=== PATIENT | female | born 1945 | race Caucasian/White ===

== ENCOUNTER 2016-10-10 20:50 | Emergency (ER) | payer OTHER ==
[~2016-10-10] VITALS: Ht 160 cm; Wt 73.7 kg
[~2016-10-10 20:50] MED LIST: ACET-1138 PO; ADVIN25050 INH; ALBU1NEB10 INH; ALBUAER2 INH; HYDR25TA4 PO; LISI40TA PO; METFTAB2 PO; PRAV40TA2 PO; PRLSR20 PO
[2016-10-10 20:52] VITALS: TEMP 36.5; Ht 160 cm; Wt 73.7 kg
[2016-10-10] MEDS ORDERED: MoRPHine SULFATE 10 MG/ML CARP/VIAL IV STA (21:21)
[2016-10-10] MEDS ORDERED: ONDANSETRON INJ 2 MG/ML 2 ML VIAL IV STA ×2 (21:21→23:19)
[2016-10-10 21:26] LABS: BASO % 0.3 %; BASO ABS # 0.02 K/uL (0-0.2); COMPLETE YES; EOS % 1.4 %; IG% 0.1 %; LYMPH % 30.7 %; LYMPH ABS # 2.44 K/uL (1.2-3.4); MEAN CELL VOLUME 86.7 fL (80-100); MEAN CORPUSCULAR HEMOGLOBIN 30.9 pg (25-34); MEAN CORPUSCULAR HGB CONC 35.7 g/dl (32-36); MEAN PLATELET VOLUME 9.9 fL (7.4-10.4); NEUT % 62.5 %; PLATELET COUNT 263 K/uL (130-400); RED BLOOD COUNT 4.27 M/uL (4.2-5.4); WHITE BLOOD COUNT 7.96 K/uL (4.8-10.8)
[2016-10-10] MEDS ORDERED: OPTIRAY 320 IV PRN (21:30)
[2016-10-10 21:31] LABS: URINE APPEARANCE CLOUDY (CLEAR); URINE BILIRUBIN NEG (NEG); URINE COLOR YELLOW; URINE EPITHELIAL CELL AUTO >30 /lpf (0-5); URINE NITRITE NEG (NEG); URINE SPECIFIC GRAVITY 1.032 (1.000-1.030); UROBILINOGEN NEG (NEG); ZZUR CULT IF INDIC CLEAN CATCH YES
[2016-10-10 21:32] LABS: MANUAL MICROSCOPIC REQUIRED? NO; REVIEW REQ? NO
[2016-10-10 21:40] LABS: ALT/SGPT 23 U/L (12-78); BLOOD UREA NITROGEN 16 mg/dl (7-18); BUN/CREATININE RATIO 21.8 (10-20); CALCIUM 9.3 mg/dl (8.5-10.1); CARBON DIOXIDE 23 mmol/L (21-32); CHLORIDE 97 mmol/L (98-107); CREATININE 0.73 mg/dl (0.60-1.20); GLUCOSE 137 mg/dl (70-99); POTASSIUM 4.1 mmol/L (3.5-5.1); SODIUM 134 mmol/L (136-145)
[2016-10-10] MEDS ORDERED: PRLSR20 PO (21:41)
[2016-10-10] MEDS ORDERED: LISI-787 PO (21:41)
[2016-10-10 21:43] LABS: ALKALINE PHOSPHATASE 74 U/L (45-117); AST/SGOT 15 U/L (15-37)
[2016-10-10] MEDS ORDERED: ACET-1257 PO (21:43)
[2016-10-10] MEDS ORDERED: CEPH500C PO (23:40)
[2016-10-10] MEDS ORDERED: CEPHALEXIN MONOHYDRATE 250 MG CAP PO ONE (23:45)
[2016-10-10] MEDS ORDERED: OXYCODONE IR HOME PACK PO ONE (23:45)
[2016-10-11] MEDS ORDERED: ONDANSETRON HOME PACK 4MG OD TAB ONE (00:06)
[2016-10-11 00:11] VITALS: BP 148/86; PULSE 84; O2SAT 96
[2016-10-11] MEDS ORDERED: ONDANSETRON HOME PACK 4MG OD TAB PO ONE (00:15)
--- NOTE | 2016-10-11 01:16 | EMERGENCY ROOM VISIT NOTE ---
History Report prepared by Reinaldo: Suzette Putnam Under the Supervision of: Dr. Philip Masters D.O. First contact with patient: 21:08 Chief Complaint: FLANK PAIN Stated Complaint: PAIN IN SIDE AND BACK History of Present Illness The patient is a 70 year old female who presents to the Emergency Room with complaints of worsening left sided flank pain with onset 4 days ago. She rates her pain as a 10/10. Three days ago, the patient had a bowel movement that improved her discomfort. Two days ago, she noticed that the pain wrapped around her lower back. She has had some burning with urination and urinary frequency on Sunday but since then has had numbness. The patient notes that lying down makes the pain worse especially when she lays on that side. She denies weakness or numbness in her legs or groin, chest pain, shortness of breath, blood in her urine. She denies a history of aorta problems. No fevers greater than 100.4. Patient denies any abdominal pain. Source of History: patient Onset: 4 days ago Position: other (left flank ) Symptom Intensity: 10/10 Quality: other (flank pain) Timing: worsening Associated Symptoms: + back pain, No SOB, No chest pain, No numbness, No weakness Note: She has had some burning with urination and urinary frequency. She denies blood in her urine, numbness or weakness in her groin. Review of Systems See HPI for pertinent positives & negatives. A total of 10 systems reviewed and were otherwise negative. Past Medical & Surgical Medical Problems: (1) ASTHMA, UNSPECIFIED (2) DIAB STEVE WO COMPL, TYPE II OR UNSPEC TYPE, UNCONTROLLED (3) HYPERTENSION NOS (4) KNEE JOINT REPLACEMENT STATUS (5) MIXED HYPERLIPIDEMIA Family History Diabetes mellitus FH: cancer Social History Smoking Status: Never Smoker Drug Use: none Marital Status: Housing Status: lives with family Current/Historical Medications Scheduled Cephalexin Monohydrate (Keflex), 500 MG PO QID Lisinopril/Hctz (Zestoretic 20MG/12.5MG), 1 TAB PO QAM Metformin Ext Rel (Glucophage Ext Rel), 750 MG PO BID Omeprazole (Prilosec), 20 MG PO QAM Pravastatin Sodium (Pravastatin Sodium), 40 MG PO QPM Scheduled PRN Acetaminophen (Tylenol Extra Strength), 1,000 MG PO Q8 PRN for Pain Albuterol (Ventolin Hfa), 1-2 PUFFS INH QID PRN for Shortness of Breath Albuterol Sulf (Albuterol Sulfate 0.083% For Inh), 3 ML INH BID PRN for PRN Fluticasone Prop/Salmeterol (Advair Diskus 250-50 Mcg/Dose), 1 PUFF INH BID PRN for PRN Allergies Coded Allergies: No Known Allergies (Verified , 10/10/16) Physical Exam Vital Signs Date Time Temp Pulse Resp B/P Pulse Ox O2 Delivery O2 Flow Rate FiO2 10/11/16 00:11 84 18 148/86 96 10/10/16 21:26 80 10/10/16 20:52 36.5 77 20 200/98 96 Room Air Physical Exam GENERAL: Sitting up in bed, in mild distress, holding left flank EYE EXAM: normal conjunctiva OROPHARYNX: no exudate, no erythema, lips, buccal mucosa, and tongue normal and mucous membranes are moist NECK: supple, no nuchal rigidity, no adenopathy, non-tender LUNGS: Clear to auscultation. Normal chest wall mechanics HEART: no murmurs, S1 normal and S2 normal ABDOMEN: abdomen soft, non-tender, normo-active bowel sounds, no masses, no rebound or guarding. BACK: Back is symmetrical on inspection and there is no deformity, no midline tenderness, acute reproducible left paraspinal tenderness tracking through flank SKIN: no rashes and no bruising UPPER EXTREMITIES: upper extremities are grossly normal. LOWER EXTREMITIES: No pitting edema. Flexion/extension hip, knee, ankle EHL bilateral and gross sensations intact NEURO EXAM: Normal sensorium, cranial nerves II-XII grossly intact, normal speech, no gross weakness of arms Medical Decision & Procedures ER Provider Diagnostic Interpretation: CT results per the radiologist and my interpretation. CT Abdomen and Pelvis: No evidence of acute inflammatory or obstructive process in the abdomen or pelvis to account for left flank pain. Large hiatal hernia, incompletely visualized. Left adnexal 3.2 cm cyst, possibly ovarian cyst. Consider follow-up with pelvic ultrasound. ADDITIONALLY/ INCIDENTAL FINDINGS: Few colonic diverticula without evidence of acute diverticulitis. Hysterectomy. Atherosclerotic vascular disease. No AAA. Degenerative changes of the spine. Radiologist: Dodie Leyva MD. Laboratory Results 10/10/16 21:10 Red Blood Count 4.27, Mean Corpuscular Volume 86.7, Mean Corpuscular Hemoglobin 30.9, Mean Corpuscular Hemoglobin Concent 35.7, Mean Platelet Volume 9.9, Neutrophils (%) (Auto) 62.5, Lymphocytes (%) (Auto) 30.7, Monocytes (%) (Auto) 5.0, Eosinophils (%) (Auto) 1.4, Basophils (%) (Auto) 0.3, Neutrophils # (Auto) 4.98, Lymphocytes # (Auto) 2.44, Monocytes # (Auto) 0.40, Eosinophils # (Auto) 0.11, Basophils # (Auto) 0.02 10/10/16 21:10 Test 10/10/16 21:10 White Blood Count 7.96 K/uL (4.8-10.8) Red Blood Count 4.27 M/uL (4.2-5.4) Hemoglobin 13.2 g/dL (12.0-16.0) Hematocrit 37.0 % (37-47) Mean Corpuscular Volume 86.7 fL (80-100) Mean Corpuscular Hemoglobin 30.9 pg (25-34) Mean Corpuscular Hemoglobin Concent 35.7 g/dl (32-36) Platelet Count 263 K/uL (130-400) Mean Platelet Volume 9.9 fL (7.4-10.4) Neutrophils (%) (Auto) 62.5 % Lymphocytes (%) (Auto) 30.7 % Monocytes (%) (Auto) 5.0 % Eosinophils (%) (Auto) 1.4 % Basophils (%) (Auto) 0.3 % Neutrophils # (Auto) 4.98 K/uL (1.4-6.5) Lymphocytes # (Auto) 2.44 K/uL (1.2-3.4) Monocytes # (Auto) 0.40 K/uL (0.11-0.59) Eosinophils # (Auto) 0.11 K/uL (0-0.5) Basophils # (Auto) 0.02 K/uL (0-0.2) RDW Standard Deviation 39.3 fL (36.4-46.3) RDW Coefficient of Variation 12.4 % (11.5-14.5) Immature Granulocyte % (Auto) 0.1 % Immature Granulocyte # (Auto) 0.01 K/uL (0.00-0.02) Urine Color YELLOW Urine Appearance CLOUDY (CLEAR) Urine pH 5.0 (4.5-7.5) Urine Specific [place] 1.032 (1.000-1.030) Urine Protein NEG (NEG) Urine Glucose (UA) NEG (NEG) Urine Ketones TRACE (NEG) Urine Occult Blood TRACE (NEG) Urine Nitrite NEG (NEG) Urine Bilirubin NEG (NEG) Urine Urobilinogen NEG (NEG) Urine Leukocyte Esterase MODERATE (NEG) Urine WBC (Auto) >30 /hpf (0-5) Urine RBC (Auto) 0-4 /hpf (0-4) Urine Hyaline Casts (Auto) 10-30 /lpf (0-5) Urine Epithelial Cells (Auto) >30 /lpf (0-5) Urine Bacteria (Auto) NEG (NEG) Anion Gap 14.0 mmol/L (3-11) Est Creatinine Clear Calc Drug Dose 68.0 ml/min Estimated GFR () 96.0 Estimated GFR (Non- 82.9 BUN/Creatinine Ratio 21.8 (10-20) Calcium Level 9.3 mg/dl (8.5-10.1) Total Bilirubin 0.3 mg/dl (0.2-1) Direct Bilirubin < 0.1 mg/dl (0-0.2) Aspartate Amino Transf (AST/SGOT) 15 U/L (15-37) Alanine Aminotransferase (ALT/SGPT) 23 U/L (12-78) Alkaline Phosphatase 74 U/L (45-117) Total Protein 7.7 gm/dl (6.4-8.2) Albumin 4.3 gm/dl (3.4-5.0) Lipase 378 U/L (73-393) Laboratory results per my review. Medications Administered Medications (Trade) Dose Ordered Sig/Kaykay Route Start Time Stop Time Status Last Admin Dose Admin Morphine Sulfate (MoRPHine SULFATE INJ) 6 mg NOW STAT IV 10/10/16 21:21 10/10/16 21:22 DC 10/10/16 21:31 6 MG Ondansetron HCl (Zofran Inj) 4 mg NOW STAT IV 10/10/16 21:21 10/10/16 21:22 DC 10/10/16 21:31 4 MG Ondansetron HCl (Zofran Inj) 4 mg NOW STAT IV 10/10/16 23:19 10/10/16 23:20 DC 10/10/16 23:26 4 MG Oxycodone HCl (Roxicodone Immediate Rel 5MG Home Pack) 1 homepack UD ONCE PO 10/10/16 23:45 10/10/16 23:46 DC 10/11/16 00:03 1 HOMEPACK Cephalexin Monohydrate (Keflex Cap) 500 mg NOW ONCE PO 10/10/16 23:45 10/10/16 23:46 DC 10/11/16 00:03 500 MG Ondansetron HCl (ZOFRAN ODT 4MG Home Pack) 1 homepack STK-MED ONCE .ROUTE 10/11/16 00:06 10/11/16 00:07 DC 10/11/16 00:06 1 HOMEPACK ED Course ED COURSE: Vital signs were reviewed and showed that the patient was hypertensive. The patients medical record was reviewed The above diagnostic studies were performed and reviewed. ED treatments and interventions as stated above. 0: The patient was evaluated in room C5. A complete history and physical examination was performed. 2121: Zofran 4 mg IV, Morphine Sulfate 6 mg IV 2319: Zofran 4 mg IV 2332: Upon reevaluation, the patient is doing well. She had some dizziness and nausea following the morphine. I discussed my findings with the patient and she understands and agrees with the treatment plan. The patient notes that she had some pain with urination several days ago but that this has now subsided. I updated her on the finding of an ovarian cyst; she will follow up with an ultrasound. Based on the patients age, coexisting illnesses, exam and lab findings the decision to treat as an outpatient was made. The patient remained stable while under my care. The patient appeared well at the time of discharge. 2345: Keflex Cap 500 mg PO, Oxycodone HCl 1 homepack 0015: Zofran 4 mg 1 homepack PO Medical Decision Differential diagnosis: Etiologies such as renal colic, appendicitis, diverticulitis, mesenteric ischemia, aortic pathology, infections, inflammatory bowel disease, PUD, biliary pathology, UTI, as well as others were entertained. The patient is a 70 year old female who presents to the ED with complaints of left flank pain. Her pain is in her lower left back. She is no weakness or numbness in arms or legs. No saddle paresthesias. No signs of cauda equina. Neurologically completely intact. She has acute reproducible left paraspinal tenderness in the lower lumbar region. I do feel this is completely musculoskeletal in exam. CT was performed as she was extremely hypertensive and showed no dissection or renal stones. UA was contaminated but with the urinary complaints this past Sunday I did place her on Keflex. She has no symptoms at this time and consequently I put her on a short course. She is discharged with OxyIR. She did become very nauseous and dizzy following the morphine. She rested in the ER was discharged follow with her primary care doctor with muscle skeletal back pain. Of note she was found to have a possible left ovarian cyst although she has a questionable hysterectomy versus total hysterectomy. She does need a follow-up in 2 weeks for which sound of this. This was explained at length to the patient. Discussed with Pt concerning signs and symptoms to watch out for. Pt was instructed to follow up with their PCP and discussed with the patient their option to return to the ED at anytime for persistent or worsening symptoms. The appropriate anticipatory guidance and out-patient management, including indications for return to the emergency department, were explained at length to the patient and understood. Impression Primary Impression: Acute back pain Additional Impressions: Flank pain Ovarian cyst Scribe Attestation The scribe's documentation has been prepared under my direction and personally reviewed by me in its entirety. I confirm that the note above accurately reflects all work, treatment, procedures, and medical decision making performed by me. Departure Information Dispostion Home / Self-Care Prescriptions Cephalexin Monohydrate (Keflex) 500 Mg Cap 500 MG PO QID, #16 CAP Prov: Philip Masters, DO 10/10/16 Referrals No Doctor, Assigned (PCP) Forms HOME CARE DOCUMENTATION FORM, IMPORTANT VISIT INFORMATION Patient Instructions A Signature Page, My [facility] [place] [email or web address] Additional Instructions Please follow up with your primary care doctor or if you are a student [facility] with in the next 24 hours. Any worsening of your symptoms, please return to the ED immediately. This includes worsening pain, fevers greater than 100.4, weakness in her legs, inability to walk, or any other concerning signs or symptoms from your standpoint. Please follow up with her primary care doctor in the next 2 weeks for 3.2 cm small left adnexal mass. You will need follow-up/ultrasound for this. You were given medications during this visit that will inhibit your ability to drive, operate machinery and work. Please do NOT drive, operate machinery or work for the next 12hrs. You were also given a prescription for a narcotic. While taking this medication you should also not drive, operate machinery and or work. Problem Qualifiers Primary Impression: Acute back pain Back pain location: low back pain Back pain laterality: left Sciatica presence: without sciatica Qualified Codes: M54.5 - Low back pain Additional Impressions: Ovarian cyst Laterality: left Qualified Codes: N83.202 - Unspecified ovarian cyst, left side
--- NOTE | 2016-10-11 07:42 | DIAGNOSTIC IMAGING REPORT ---
CT SCAN OF THE ABDOMEN AND PELVIS WITH IV CONTRAST CLINICAL HISTORY: Left flank pain. COMPARISON STUDY: Abdominal ultrasound dated 12/01/2015. Abdominal radiographs dated 11/01/15. TECHNIQUE: Following the IV administration of 94 cc of Optiray 320, CT scan of the abdomen and pelvis is performed from the lung bases to the proximal femora. Images are reviewed in the axial, sagittal, and coronal planes. IV contrast was administered without complication. Automated dose control exposure was utilized. CT DOSE: 385.33 mGy.cm FINDINGS: Lung bases: The heart is mildly enlarged and without pericardial effusion. The lung bases are clear noting mild bibasilar atelectasis. Liver: The contrast-enhanced liver is normal in size, contour, and attenuation. There is no intrahepatic biliary ductal dilatation. The hepatic veins and portal veins are patent. Gallbladder: Unremarkable. Spleen: Normal in size and attenuation. Pancreas: Unremarkable. Adrenal glands: Unremarkable. Kidneys: The contrast enhanced kidneys demonstrate mild cortical atrophy and are without hydronephrosis. The kidneys enhance symmetrically. Abdominal vasculature: The abdominal aorta is normal in course and caliber noting mild to moderate atherosclerotic calcification. Stomach and bowel: There is a large hiatal hernia, with over half of the stomach located in the thoracic cavity. The duodenum is normal in configuration. There is no bowel obstruction. There is mild sigmoid diverticulosis without CT evidence of acute diverticulitis. Mild to moderate colonic fecal retention is observed. The appendix is not identified and reported surgically absent. Peritoneum: There is no intraperitoneal free air or abdominal ascites. There is a small fat-containing umbilical hernia. Lymphadenopathy: None. Pelvic viscera: The bladder is normal as visualized. The uterus is surgically absent. There is a 4 x 3.4 cm simple appearing cystic lesion identified in the left adnexa on axial image #295. Skeletal structures: The skeletal structures are osteopenic. There is lumbosacral spondylosis and scoliosis. A large disc bulge is suggested at L4-L5. No lytic or blastic lesions are seen. IMPRESSION: 1. There are no acute infectious or inflammatory findings in the abdomen or pelvis. 2. Large hiatal hernia. 3. There is a 4 x 3.4 cm simple appearing cystic lesion identified in the left adnexa. This is likely related to the left ovary, and is an abnormal finding in this age group. Follow-up with a pelvic ultrasound is recommended for further assessment. 4. Additional changes as above. Electronically signed by: Simone Roman M.D. 10/11/2016 7:40 AM Dictated Date/Time: 10/11/2016 7:28 AM
== END 2016-10-11 00:12 | disposition home or self-care (01) ==
LOC: C.EDB 20:51 → C.EDC 10-11 00:12
DX: M54.5 Low back pain (principal); N83.202 Unspecified ovarian cyst, left side; J45.909 Unspecified asthma, uncomplicated; E11.9 Type 2 diabetes mellitus without complications; I10 Essential (primary) hypertension; Z96.659 Presence of unspecified artificial knee joint; E78.2 Mixed hyperlipidemia; Z79.899 Other long term (current) drug therapy

== ENCOUNTER → 2016-10-12 | Outpatient (CLI) | payer OTHER ==
[~2016-10-12] MED LIST changes: -ACET-1138 PO; +ACET-1257 PO; +CEPH500C PO; -HYDR25TA4 PO; +LISI-787 PO; -LISI40TA PO
[2016-10-12 13:41] LABS: BLOOD UREA NITROGEN 16 mg/dl (7-18); BUN/CREATININE RATIO 22.2 (10-20); CALCIUM 9.5 mg/dl (8.5-10.1); CARBON DIOXIDE 27 mmol/L (21-32); CHLORIDE 97 mmol/L (98-107); CREATININE 0.72 mg/dl (0.60-1.20); GLUCOSE 144 mg/dl (70-99); POTASSIUM 4.1 mmol/L (3.5-5.1); SODIUM 133 mmol/L (136-145)
== END | disposition home or self-care (01) ==
LOC: C.LABPVFM 07:49
PROVIDERS: ATTEND Family Medicine
DX: E11.9 Type 2 diabetes mellitus without complications (principal)

== ENCOUNTER → 2016-10-20 | Outpatient (CLI) | payer OTHER ==
--- NOTE | 2016-10-20 14:55 | DIAGNOSTIC IMAGING REPORT ---
PA CHEST RADIOGRAPH AND UPRIGHT AND SUPINE AP RADIOGRAPHS OF THE ABDOMEN CLINICAL HISTORY: Flank pain. COMPARISON STUDY: Chest radiograph with abdominal series November 01, [address] of the abdomen and pelvis October 10, 2016 per FINDINGS: A large hiatal hernia with intrathoracic stomach is again noted. Lung volumes are normal. There is no evidence of pulmonary edema. No pneumothorax or pleural effusion is present. Mild cardiomegaly is unchanged. There is no free air. Bowel gas pattern is normal. There is mild dextroscoliosis of the lumbar spine. IMPRESSION: 1. No free air or evidence of bowel obstruction. 2. Large hiatal hernia. 3. No acute cardiopulmonary findings. Electronically signed by: Rob Snow M.D. 10/20/2016 2:54 PM Dictated Date/Time: 10/20/2016 2:53 PM
== END | disposition home or self-care (01) ==
LOC: C.RADPV 14:27
PROVIDERS: ATTEND Family Medicine
DX: R10.9 Unspecified abdominal pain (principal); K44.9 Diaphragmatic hernia without obstruction or gangrene

== ENCOUNTER → 2016-10-25 | Outpatient (CLI) | payer OTHER ==
--- NOTE | 2016-10-25 11:52 | DIAGNOSTIC IMAGING REPORT ---
EXAMINATION: PELVIC ULTRASOUND CLINICAL HISTORY: Abdominal pain. Adnexal mass. COMPARISON STUDY: CT scan dated 10/10/2016 FINDINGS: Neither the uterus or ovaries were visualized. The patient reports that she is status post a hysterectomy and bilateral oophorectomy. In the left adnexa, there is a cystic lesion measuring 34 x 31 x 26 mm. This contains no mural nodules and no septations. No free fluid was visualized. The patient refused endovaginal scanning. IMPRESSION: 1. Nonvisualization of the uterus or ovaries 2. Cystic lesion within the left adnexa measuring 34 x 31 x 26 mm. This contains no mural nodules and no septations. Electronically signed by: Aren Colin M.D. 10/25/2016 11:51 AM Dictated Date/Time: 10/25/2016 11:48 AM
== END | disposition home or self-care (01) ==
LOC: C.ULTR 10:45
PROVIDERS: ATTEND Family Medicine
DX: N85.9 Noninflammatory disorder of uterus, unspecified (principal); N94.9 Unspecified condition associated with female genital organs and menstrual cycle

== ENCOUNTER → 2017-01-18 | Outpatient (CLI) | payer OTHER ==
[2017-01-18 12:15] LABS: ALT/SGPT 22 U/L (12-78); BLOOD UREA NITROGEN 11 mg/dl (7-18); BUN/CREATININE RATIO 14.7 (10-20); CARBON DIOXIDE 29 mmol/L (21-32); CHLORIDE 99 mmol/L (98-107); CHOLESTEROL 131 mg/dl (0-200); CREATININE 0.77 mg/dl (0.60-1.20); GLUCOSE 155 mg/dl (70-99); POTASSIUM 4.3 mmol/L (3.5-5.1); SODIUM 136 mmol/L (136-145); TRIGLYCERIDES 125 mg/dl (0-150); VERY LOW DENSITY LIPOPROT CALC 25 mg/dl
[2017-01-18 12:18] LABS: ALB/GLOB RATIO 1.3 (0.9-2); ALKALINE PHOSPHATASE 66 U/L (45-117); AST/SGOT 16 U/L (15-37); CHOLESTEROL/HDL RATIO 2.4; HDL CHOLESTEROL 55 mg/dl; LDL CHOLESTEROL CALCULATED 51 mg/dl
[2017-01-18 12:28] LABS: CALCIUM 9.1 mg/dl (8.5-10.1)
[2017-01-18 12:49] LABS: ESTIMATED AVERAGE GLUCOSE 157 mg/dl; HA1C FLAG Normal (Normal)
== END | disposition home or self-care (01) ==
LOC: C.LABPVFM 07:22
PROVIDERS: ATTEND Nurse Practitioner
DX: I10 Essential (primary) hypertension (principal); E11.9 Type 2 diabetes mellitus without complications; E78.5 Hyperlipidemia, unspecified

== ENCOUNTER → 2017-04-13 | Outpatient (CLI) | payer OTHER ==
[~2017-04-13] MED LIST changes: -CEPH500C PO
== END | disposition home or self-care (01) ==
LOC: C.LABPVFM 08:04
PROVIDERS: ATTEND Nurse Practitioner Family
DX: R11.0 Nausea (principal)

== ENCOUNTER → 2017-07-03 | Outpatient (CLI) | payer OTHER | END | disposition home or self-care (01) | LOC: C.LABPVFM 12:15 | PROVIDERS: ATTEND Nurse Practitioner | DX: N39.0 Urinary tract infection, site not specified (principal) ==

== ENCOUNTER → 2017-07-16 | Outpatient (CLI) | payer OTHER ==
[2017-07-16 12:48] LABS: URINE APPEARANCE CLEAR (CLEAR); URINE BILIRUBIN NEG (NEG); URINE COLOR YELLOW; URINE NITRITE NEG (NEG); URINE PH 6.5 (4.5-7.5); UROBILINOGEN NEG (NEG); ZZUR CULT IF INDIC CLEAN CATCH NO
[2017-07-16 12:50] LABS: MANUAL MICROSCOPIC REQUIRED? NO; REVIEW REQ? NO
== END | disposition home or self-care (01) ==
LOC: C.LABPVFM 13:47
PROVIDERS: ATTEND Nurse Practitioner
DX: N39.0 Urinary tract infection, site not specified (principal)

== ENCOUNTER → 2017-08-16 | Outpatient (CLI) | payer OTHER ==
--- NOTE | 2017-08-17 15:37 | MAMMOGRAPHY REPORT ---
BILATERAL DIGITAL SCREENING MAMMOGRAM WITH CAD: 08/16/2017 CLINICAL HISTORY: Patient has no complaints. TECHNIQUE: Current study was also evaluated with a Computer Aided Detection (CAD) system. Bilateral CC and MLO views were obtained. COMPARISON: Comparison is made to exams dated: 06/26/2016 mammogram, 06/22/2015 mammogram, 06/02/2014 ma mmogram, 05/21/2013 mammogram, 05/20/2012 mammogram, and 05/17/2011 mammogram - [facility] nter. BREAST COMPOSITION: The tissue of both breasts is heterogeneously dense, which may obscure small mas ses. FINDINGS: No suspicious masses, calcifications, or areas of architectural distortion are noted in ei ther breast. There has been no significant interval change compared to prior exams. Bilateral benign -appearing calcifications are not significantly changed. A biopsy marker clip is again noted within the left upper inner quadrant. IMPRESSION: ACR BI-RADS CATEGORY 2: BENIGN There is no mammographic evidence of malignancy. A 1 year screening mammogram is recommended. The pa tient will receive written notification of the results. Approximately 10% of breast cancers are not detected with mammography. A negative mammographic report should not delay biopsy if a clinically suggestive mass is present. Pilar Obrien M.D. /:08/16/2017 15:10:03 Harvesting Supervisor: Shoshana WEEKS)(M), [facility] letter sent: Normal 1/2 BI-RADS Code: ACR BI-RADS Category 2: Benign
== END | disposition home or self-care (01) ==
LOC: C.MAMM 10:13
PROVIDERS: ATTEND Nurse Practitioner
DX: Z12.31 Encounter for screening mammogram for malignant neoplasm of breast (principal)

== ENCOUNTER → 2017-08-21 | Outpatient (CLI) | payer OTHER ==
[~2017-08-21] MED LIST changes: +HYDR25TA4 PO; +LSNP/30 PO; +METF750T PO; +TRAM-10 PO; +VNTHFA/IN INH
== END | disposition home or self-care (01) ==
LOC: C.LABPVFM 10:44
PROVIDERS: ATTEND Nurse Practitioner
DX: N39.0 Urinary tract infection, site not specified (principal)

== ENCOUNTER → 2017-10-16 | Day surgery (SDC) | payer OTHER ==
[2017-10-08 10:16] VITALS: Ht 160 cm; Wt 75.9 kg
[~2017-10-16] VITALS: Ht 160 cm; Wt 75.9 kg
[~2017-10-16] MED LIST changes: -ACET-1257 PO; -ADVIN25050 INH; -ALBU1NEB10 INH; -ALBUAER2 INH; +ATROPINE SULFATE 0.1 MG/ML 5ML SYR IV PRN; +BUPIVACAINE 0.5 % 5 MG/1 ML PF 10ML VIAL ONE; +CEFAZOLIN 1000MG IV PUSH 5 ML IV SCH; +EpHEDrine SULFATE INJ 50 MG/ML AMP IV PRN; +FENTANYL CITRATE INJ 50 MCG/1 ML 2 ML VIAL IV PRN; +FENTANYL CITRATE INJ 50 MCG/1 ML 2 ML VIAL ONE; +LACTATED RINGER'S 1000ML 1,000 ML IV SCH; +LIDOCAINE HCL 1% 20 ML VIAL ONE; +LIDOCAINE HCL 2% 2 ML VIAL (20MG/ML) ONE; -LISI-787 PO; -METFTAB2 PO; +MIDAZOLAM HCL 1 MG/ML 2ML VIAL ONE; +NURSING VERBAL MED ORDER ONE; +ONDANSETRON INJ 2 MG/ML 2 ML VIAL IV PRN; +ONDANSETRON INJ 2 MG/ML 2 ML VIAL ONE; +OXYCODONE/ACETAMINOPHEN 5-325 TAB PO PRN; +PROPOFOL IV EMULSION 10 MG/ML 20 ML VIAL IV ONE; +SODIUM CHLORIDE 0.9% 1000ML 1,000 ML IV SCH; +TRAMADOL HCL 50 MG TAB ONE; +TRAMADOL HCL 50 MG TAB PO PRN
--- NOTE | 2017-10-16 07:37 | History & Physical Bridge - SC ---
H&P Re-Evaluation Bridge Note: I have examined the patient, reviewed the History & Physical and in the interval since the performance of the History & Physical I have noted the following changes of clinical significance: No changes noted
--- NOTE | 2017-10-16 08:06 | [facility] Post Operative Brief Note ---
Immediate Operative Summary Operative Date Oct 16, 2017. Pre-Operative Diagnosis Left Carpal Tunnel Syndrome Post-Operative Diagnosis Same Procedure(s) Performed Left Carpal Tunnel Release Surgeon Dr. Martinez Early Childhood Educator Aide Surgeon(s) Roger Cummings PA-C Estimated Blood Loss None Findings ABOVE Specimens None Anesthesia LOCAL IV SEDATION Complication(s) None Disposition
[2017-10-16 08:09] VITALS: TEMP 36.8
--- NOTE | 2017-10-16 08:11 | Discharge Instructions-SurgCtr ---
Discharge Instructions Date of Service Oct 16, 2017. Visit Reason for Visit: Left Wrist Carpal Tunnel Syndrome Discharge Discharge Diagnosis / Problem: SAME ABOVE Discharge Goals Goal(s): Decrease discomfort, Improve function Medications Stopped Medications Name(s): METFORMIN STOPPED ON SUNDAY Activity Recommendations Activity Limitations: as noted below Lifting Limitations: until after follow-up appointment Exercise/Sports Limitations: until after follow-up appointment Shower/Bathe: keep incision dry Anesthesia . Post Anesthesia Instructions: If you have had General Anesthesia or IV Sedation: * Do not drive today. * Resume driving when surgeon permits. * Do not make important decisions or sign legal documents today. * Call surgeon for: 1. Temperature elevations greater than 101 degrees F. 2. Uncontrollable pain. 3. Excessive bleeding. 4. Persistent nausea and vomiting. 5. Medication intolerance (nausea, vomiting or rash). * For nausea and vomiting use only clear liquids such as: tea, soda, bouillon until nausea subsides, then gradually increase diet as tolerated. * If you have any concerns or questions, call your surgeon's office. If physician is unavailable and it is an emergency, call 911 or go to the nearest emergency room. . Instructions / Follow-Up Instructions / Follow-Up MEDICATIONS: * Resume previous medications unless instructed otherwise by your surgeon. * Always take pain medication on a full stomach or with food to avoid upset stomach. * Do not drink alcohol or drive while taking narcotics. * Ibuprofen or Tylenol may be taken if narcotic not needed. SPECIAL CARE INSTRUCTIONS: __ None _X_ Keep extremity elevated and iced x 48 hours; apply ice 20-30 minutes 8-10 times/day. May remove at night. __ Sling __24 hrs/day __ Remove at night __ Shoulder Immobilizer __ 24 hrs/day __ Remove at night _X_ Dressing _X_ Maintain until seen in office, may shower with plastic over site __ Remove dressings in 24-48 hours and then may shower __ Cover incisions with band-aids after showering __ Do not remove steri-strips Call physician if chills or temperature rises above 102 degrees or pain unrelieved by prescribed pain medications at . . Diet Recommendations Home Diet: no limitations Procedures Procedures Performed: Left Carpal Tunnel Release Pending Studies Studies pending at discharge: no Medical Emergencies . Who to Call and When: Medical Emergencies: If at any time you feel your situation is an emergency, please call 911 immediately. . Non-Emergent Contact Non-Emergency issues call your: Primary Care Provider . . "Provider Documentation" section prepared by Betito Cummings. .
--- NOTE | 2017-10-16 08:14 | OPERATIVE REPORT ---
DATE OF OPERATION: 10/16/2017 PREOPERATIVE DIAGNOSIS: Left carpal tunnel syndrome. POSTOPERATIVE DIAGNOSIS: Same. PROCEDURE: Decompression median nerve, release transverse carpal ligament, left wrist. SURGEON: Luis Fernando Martinez MD. HOGSHEAD INSPECTOR: Betito Cummings PA-C. ANESTHESIOLOGIST: Dr. Cartwright. ANESTHESIA: Local with IV sedation. DRAINS: None. COMPLICATIONS: None. CONDITION: The patient tolerated the procedure well and returned to the recovery room in apparent satisfactory condition. INDICATIONS FOR SURGERY: Reyna is a 71-year-old female well known to me having had a right carpal tunnel done years back presents to have a left one done now. Procedure, expected outcomes and side effects were all explained in detail. DESCRIPTION OF THE PROCEDURE: The patient was taken to the OR at which time she was placed supine on the operating table. The left hand was prepped and draped in the usual sterile fashion for this surgery. The anticipated incision site was infiltrated with 1% Xylocaine. A forearm tourniquet was placed on the arm and tourniquet was placed up to 250 mmHg. Incision was made vertically over the transverse carpal tunnel ligament. Dissection was done down until the palmar fascia was identified and divided with a 15-blade. The transverse carpal ligament was identified and also divided with the 15-blade and upbiting scissors. A small portion of the forearm fascia was divided also. Electrocautery was used to control any areas of bleeding. The nerve was freed up from any scar tissue and adequately decompressed. The wound then was copiously irrigated. It was closed then with interrupted 4-0 nylon sutures. Marcaine without Epinephrine was placed in the skin edges. It was closed in a layered fashion. We placed a sterile dressing of Xeroform, 4 x 4, volar splint, and an Gigi bandage. DISPOSITION: The patient was returned back to the recovery room in apparent satisfactory condition. I attest to the content of the Intraoperative Record and any orders documented therein. Any exception s are noted below.
[2017-10-16 09:00] VITALS: BP 147/81; PULSE 70; O2SAT 100
--- NOTE | 2017-10-16 09:03 | Anesthesia Progress Nt - [facility] ---
Anesthesia Post Op Note Date & Time Oct 16, 2017 at 09:03 Vital Signs Pain Intensity: 4.0 Vital Signs Past 12 Hours Date Time Temp Pulse Resp B/P (MAP) Pulse Ox O2 Delivery O2 Flow Rate FiO2 10/16/17 08:09 36.8 89 16 127/68 (87) 98 Room Air 10/16/17 07:03 36.5 73 16 155/81 (105) 97 Room Air Notes Mental Status: alert / awake / arousable, participated in evaluation Pt Amnestic to Procedure: Yes Nausea / Vomiting: adequately controlled Pain: adequately controlled Airway Patency, RR, SpO2: stable & adequate BP & HR: stable & adequate Hydration State: stable & adequate Anesthetic Complications: no major complications apparent
== END | disposition home or self-care (01) ==
LOC: X.SURG 06:31
PROVIDERS: ATTEND Orthopaedic Surgery
DX: G56.02 Carpal tunnel syndrome, left upper limb (principal); E11.9 Type 2 diabetes mellitus without complications; J45.909 Unspecified asthma, uncomplicated; E78.00 Pure hypercholesterolemia, unspecified; Z79.899 Other long term (current) drug therapy; Z90.89 Acquired absence of other organs; Z90.710 Acquired absence of both cervix and uterus; Z96.653 Presence of artificial knee joint, bilateral

== ENCOUNTER → 2018-01-31 | Outpatient (CLI) | payer OTHER ==
[~2018-01-31] MED LIST changes: -ATROPINE SULFATE 0.1 MG/ML 5ML SYR IV PRN; -BUPIVACAINE 0.5 % 5 MG/1 ML PF 10ML VIAL ONE; -CEFAZOLIN 1000MG IV PUSH 5 ML IV SCH; -EpHEDrine SULFATE INJ 50 MG/ML AMP IV PRN; -FENTANYL CITRATE INJ 50 MCG/1 ML 2 ML VIAL IV PRN; -FENTANYL CITRATE INJ 50 MCG/1 ML 2 ML VIAL ONE; -LACTATED RINGER'S 1000ML 1,000 ML IV SCH; -LIDOCAINE HCL 1% 20 ML VIAL ONE; -LIDOCAINE HCL 2% 2 ML VIAL (20MG/ML) ONE; +LISI30TA3 PO; -LSNP/30 PO; -MIDAZOLAM HCL 1 MG/ML 2ML VIAL ONE; -NURSING VERBAL MED ORDER ONE; -ONDANSETRON INJ 2 MG/ML 2 ML VIAL IV PRN; -ONDANSETRON INJ 2 MG/ML 2 ML VIAL ONE; -OXYCODONE/ACETAMINOPHEN 5-325 TAB PO PRN; -PROPOFOL IV EMULSION 10 MG/ML 20 ML VIAL IV ONE; -SODIUM CHLORIDE 0.9% 1000ML 1,000 ML IV SCH; -TRAMADOL HCL 50 MG TAB ONE; -TRAMADOL HCL 50 MG TAB PO PRN
[2018-01-31 13:47] LABS: HEMOGLOBIN A1C 7.7 % (4.5-5.6)
[2018-01-31 13:52] LABS: BLOOD UREA NITROGEN 12 mg/dl (7-18); CALCIUM 8.9 mg/dl (8.5-10.1); CARBON DIOXIDE 28 mmol/L (21-32); CREATININE 0.79 mg/dl (0.60-1.20); GLUCOSE 153 mg/dl (70-99); POTASSIUM 4.2 mmol/L (3.5-5.1); SODIUM 132 mmol/L (136-145)
[2018-01-31 13:56] LABS: CHOLESTEROL 118 mg/dl (0-200); LDL CHOLESTEROL CALCULATED 52 mg/dl
== END | disposition home or self-care (01) ==
LOC: C.LABPVFM 07:32
PROVIDERS: ATTEND Nurse Practitioner
DX: I10 Essential (primary) hypertension (principal); E78.5 Hyperlipidemia, unspecified; E11.9 Type 2 diabetes mellitus without complications

== ENCOUNTER 2018-12-16 07:52 | Inpatient (IN) ==
--- NOTE | 2018-11-27 15:24 | PAT Medication Instructions ---
Medication Instructions Date of Service November 27, 2018 Home Medications acetaminophen [Tylenol Extra 500 mg PO Q6H PRN hydrochlorothiazide 25 mg PO QAM lisinopril 40 mg PO QPM metformin 750 mg PO BID omeprazole 20 mg PO QAM pravastatin 40 mg PO QPM DO NOT take the morning of surgery hydrochlorothiazide 25 mg PO QAM metformin 750 mg PO BID Take morning of surgery With a small sip of water, OTHERWISE NOTHING TO EAT OR DRINK AFTER MIDNIGHT: acetaminophen [Tylenol Extra 500 mg PO Q6H PRN (okay to take up to 4 hours prior to surgery if needed) omeprazole 20 mg PO QAM Take evening before surgery acetaminophen [Tylenol Extra 500 mg PO Q6H PRN (if needed) lisinopril 40 mg PO QPM metformin 750 mg PO BID pravastatin 40 mg PO QPM Other Notes If you have any questions please call us at [phone] or [phone] or [phone] or [phone]
--- NOTE | 2018-11-28 14:06 | Anesthesiology Consultation ---
Date of Service November 28, 2018 Assessment & Plan (1) Encounter for pre-operative examination: - Preop labs sodium on 11/28 were 130. Per chart review, appear to have chronic hyponatremia in low 130's but most recent sodium slightly lower than baseline. PCP aware and monitoring; per PCP response note= 12/09/18= Repeat sodium improved at 133 on 12/09 "which is normal for the patient. She is cleared for surgery." Chart Review Chart Review: Acceptable Risk for Surgery and Patient seen in Pre Admission Testing Teaching & Discussion Pre-Anesthesia Teaching/Discussion Notes: Instructed NPO after midnight before surgery,except medications with 15 cc of water. Medication instructions provided according to the PAT guidelines. History Surgery Operation Date: 12/12/18 10:20 Proposed Procedures p L3-L4, L4-L5, L5-S1 Laminectomy - Rivas Mast DO Height/Weight Height: 5 ft 3 in Weight: 71.9 kg Allergies Allergy/AdvReac Type Severity Reaction Status Date / Time azithromycin [From Zithromax] Allergy Rash Verified 11/27/18 13:43 Medications Home Medications Medication Instructions Recorded Confirmed Last Taken acetaminophen [Tylenol Extra 500 mg PO Q6H PRN 11/27/18 11/27/18 Unknown Strength] hydrochlorothiazide 25 mg PO QAM 11/27/18 11/27/18 Unknown lisinopril 40 mg PO QPM 11/27/18 11/27/18 Unknown metformin 750 mg PO BID 11/27/18 11/27/18 Unknown omeprazole 20 mg PO QAM 11/27/18 11/27/18 Unknown pravastatin 40 mg PO QPM 11/27/18 11/27/18 Unknown Past Medical History Medical History Asthma CONTROLLED; NO LONGER USES INHALER Chronic back pain RIGHT HIP/RLE RADICULOPATHY Diabetes mellitus, type 2 NIDDM GERD (gastroesophageal reflux disease) CONTROLLED Hiatal hernia STABLE, LARGE PER 11/28/18 CXR Hyperlipidemia Hypertension Past Surgical History Surgical History History of appendectomy History of carpal tunnel release B/L History of section X2 History of colonoscopy History of hysterectomy History of surgery GANGLION CYSTECTOMY History of total knee replacement B/L Past Anesthesia History No Hx of Anesthesia Complications (EXCEPT PONV) and No Family Hx of Anesthesia Complications History of PONV Yes Motion Sickness Screening History of Motion Sickness: Yes (REMOTE) Social History Smoking Status: Never smoker Do You Dip or Chew Tobacco: No Hx Alcohol Use: No Alcohol Intake Frequency Comment: 0 Hx Substance Use: No substance use type: does not use Exercise / Class Metabolic Activity III < 4 Walking/Shop/Light housework (USES CANE PRN) Review of Systems Patient reports LBP with RLE radiculopathy. Patient denies chest pain, shortness of breath, cough, wheezing, palpitations. Physical Exam Vital Signs VITALS BP 150/82 P 80 TEMP 98.1 SP02 97%RA RESP 18 PHYSICAL Full neck and c-spine range of motion. Full TMJ range of motion. TMD 3 finger breaths Mallampati Score 2 Dentition: partial on upper Lungs: clear throughout to auscultation Cardiac: regular rate and rhythm, no murmurs noted Spine: normal Carotid arteries: negative bruit Extremities: no edema Testing Electrocardiogram Date: 11/28/18 SR with first degree AVB at 74bpm. Low voltage QRS. No significant change compared to 01/28/15 per cardio. Chest X-Ray Date: 11/29/18 Findings: + NAD Stable large hiatal hernia. No acute findings. Laboratory Results 11/28/18 14:24 11/28/18 14:24 PT 10.4 Seconds (9.0-12.0) 11/28/18 14:24 INR 1.0 (0.9-1.1) 11/28/18 14:24 APTT 27.6 Seconds (21.0-31.0) 11/28/18 14:24 Hemoglobin A1c 6.9 % (4.5-5.6) H 11/28/18 14:24 12/05/18 SODIUM 130 POTASSIUM 4.0 CHLORIDE 93 CO2 29 BUN 18 CREATININE 0.71 GLUCOSE 148 12/09/18 SODIUM 133
--- NOTE | 2018-11-28 14:53 | XRay Report ---
XR chest Pre-admission PA/Lat CLINICAL HISTORY: Preoperative chest COMPARISON STUDY: No previous studies for comparison. FINDINGS: The cardiac images so contours remain stable. There is a retrocardiac opacity consistent wi th a hiatal hernia. This remain stable. There is no failure. There is no focal pulmonary consolidatio n. There are no pleural effusions.[ IMPRESSION: Stable large hiatal hernia. No acute findings. Electronically signed by: Aren Colin M.D. 11/28/2018 2:51 PM
[2018-11-28 15:00] LABS: Basophils # (auto) 0.02 K/uL (0-0.2); Basophils % (auto) 0.3 %; Eosinophils # (auto) 0.09 K/uL (0-0.5); Eosinophils % (auto) 1.5 %; Hematocrit (blood only) 36.2 % (37-47); Hemoglobin 12.6 g/dL (12.0-16.0); Immature Granulocytes # (auto) 0.02 K/uL (0.00-0.02); Immature Granulocytes % (auto) 0.3 %; Lymphocytes # (auto) 2.02 K/uL (1.2-3.4); Lymphocytes % (auto) 32.9 %; Mean Corpuscular Hgb Conc 34.8 g/dL (32-36); Mean Corpuscular Volume 87.4 fL (80-100); Mean Platelet Volume 9.6 fL (7.4-10.4); Monocytes # (auto) 0.43 K/uL (0.11-0.59); Neutrophils # (auto) 3.56 K/uL (1.4-6.5); Platelet Count 266 K/uL (130-400); RDW Coefficient of Variation 12.9 % (11.5-14.5); RDW Standard Deviation 41.5 fL (36.4-46.3); Red Blood Count 4.14 M/uL (4.2-5.4); White Blood Count 6.14 K/uL (4.8-10.8)
[2018-11-28 15:08] LABS: BUN Creatinine Ratio 15.7 (10-20); Calcium 8.9 mg/dl (8.5-10.1); Creatinine Clr Calc Pharmacy 66.1 ml/min; Est GFR (African American) 97.3; Est GFR (Non-African American) 83.9; Potassium 4.2 mmol/L (3.5-5.1)
[2018-11-28 15:10] LABS: Partial Thromboplastin Time 27.6 Seconds (21.0-31.0); Prothrombin Time 10.4 Seconds (9.0-12.0)
[2018-11-29 07:17] LABS: Estimated Average Glucose 151 mg/dl; Hemoglobin A1C 6.9 % (4.5-5.6)
--- NOTE | 2018-12-13 12:28 | History and Physical Report ---
DATE OF ADMISSION: 12/16/2018 CHIEF COMPLAINT: Right lower extremity difficulty, paresthesias. HISTORY OF PRESENT ILLNESS: Reyna is 69 years of age. She is compromised by lumbar radicular pattern, fairly miserable. She has nerve root compression, particularly L4-L5 and L5-S1, slightly at L3-L4. She is set up for elective surgery at [facility] on 12/16/2018 lumbar laminectomy L3 to 5. PAST MEDICAL HISTORY: Diabetes, high cholesterol, hypertension, asthma, stomach ulcers. SURGICAL HISTORY: Bilateral knee surgery, x2, appendectomy and hysterectomy. ALLERGIES: Negative. SOCIAL HISTORY: She is . No tobacco, no alcohol. Active lifestyle. REVIEW OF SYSTEMS: Twelve system review. She has no fever, sweats, chills, unexplained weight loss, gain. Ear, nose and throat negative. Denies chest pain, palpitations. No nausea, vomiting, urgency, frequency, dysuria. It is mostly back, lower extremity difficulty, stiffness, weakness and pain. MEDICATIONS: Lisinopril, metformin, Ventolin, probiotic. PHYSICAL EXAMINATION: GENERAL: She is 5' 4", 160 in moderate distress, cannot get comfortable. VITAL SIGNS: Blood pressure 130/80, pulse 80, respirations 16. HEENT: Essentially normal. HEART: Normal S1, S2, no S3. LUNGS: Clear. ABDOMEN: Soft, nontender. NEUROLOGIC: She has weakness with dorsiflexion and plantarflexion. Gait abnormality, decreased range of motion, pain with percussion. X-rays demonstrated degenerative scoliosis and stenosis of the spine, particularly L4-L5 and 5-S1. ASSESSMENT: Degenerative scoliosis and stenosis lumbar spine. PLAN: Posterior approach lumbar spine decompression laminectomy L3 to S1 lumbar spine.
[~2018-12-16 07:52] MED LIST changes: +ACETAMINOPHEN 500 MG TAB PO SCH; +CEFAZOLIN 2000MG 2,000 MG/15 ML SYR IV SCH; +CeleBREX 200 MG CAP PO SCH; -HYDR25TA4 PO; -LISI30TA3 PO; +LR 15ML/HR IV SCH; -METF750T PO; -PRAV40TA2 PO; -PRLSR20 PO; +SODIUM CHLORIDE 0.9% 1,000 ML IV SCH; -TRAM-10 PO; -VNTHFA/IN INH
[2018-12-16] MEDS ORDERED: CeleBREX 200 MG CAP ONE (08:37)
[2018-12-16] MEDS ORDERED: DEXAMETHASONE SOD INJ 4 MG/ML VIAL ONE (08:44)
[2018-12-16] MEDS ORDERED: GLYCOPYRROLATE 0.2 MG/ML VIAL ONE (08:44)
[2018-12-16] MEDS ORDERED: LIDOCAINE HCL 2% 2 ML VIAL/AMP(20MG/ML) INFIL ONE (08:44)
[2018-12-16] MEDS ORDERED: fentaNYL citrate 100 MCG/2 ML VIAL ONE (08:44)
[2018-12-16] MEDS ORDERED: ONDANSETRON INJ 2 MG/ML 2 ML VIAL ONE (08:44)
[2018-12-16] MEDS ORDERED: LARYING-O-JET KIT (LTA) ONE (08:44)
[2018-12-16] MEDS ORDERED: ePHEDrine sulfate 50 MG/ML SYR ONE (08:44)
[2018-12-16] MEDS ORDERED: ROCURONIUM BROMIDE 10 MG/ML 5 ML VIAL ONE (08:44)
[2018-12-16] MEDS ORDERED: PROPOFOL IV EMULSION 10 MG/ML 20 ML VIAL IV ONE (08:44)
[2018-12-16] MEDS ORDERED: NEOSTIGMINE METHYLSULFATE 5 MG/5 ML SYR ONE (08:44)
[2018-12-16] MEDS ORDERED: MIDAZOLAM HCL 1 MG/ML 2ML VIAL ONE (08:45)
[2018-12-16] MEDS ORDERED: ATROPINE SULFATE 0.1 MG/ML 10ML SYR IV PRN (09:31)
[2018-12-16] MEDS ORDERED: ePHEDrine sulfate 50 MG/ML AMP IV PRN (09:31)
[2018-12-16] MEDS ORDERED: fentaNYL citrate 100 MCG/2 ML VIAL IV PRN (09:31)
[2018-12-16] MEDS ORDERED: ONDANSETRON INJ 2 MG/ML 2 ML VIAL IV PRN (09:31)
[2018-12-16] MEDS ORDERED: THROMBIN FOR SOLN 20000 UNIT KIT ONE (10:18)
[2018-12-16] MEDS ORDERED: BUPIVACAINE/EPINEPHRINE 0.5% MPF 1:200,000 30 ML VIAL ONE (10:18)
[2018-12-16] MEDS ORDERED: GELATIN SPONGE SZ 100 ONE (10:18)
[2018-12-16] MEDS ORDERED: BACITRACIN INJ 50,000 UNIT VIAL ONE (10:18)
[2018-12-16] MEDS ORDERED: VANCOMYCIN HCL 1000MG/20ML VIAL ONE ×2 (10:18→12:26)
--- NOTE | 2018-12-16 10:38 | History & Physical Bridge Note ---
Date of Service December 16, 2018 History & Physical Bridge Note I have examined the patient, reviewed the History & Physical and in the interval since the performance of the History & Physical I have noted the following changes of clinical significance: no changes noted
[2018-12-16] MEDS ORDERED: HYDROmorphone INJ 2 MG/ML SYR/VIAL ONE (11:33)
--- NOTE | 2018-12-16 12:31 | Fluoroscopy Report ---
FL spine 1V any level CLINICAL HISTORY: Laminectomy. COMPARISON STUDY: Lumbar spine MRI November 20, 2018. FLUOROSCOPY TIME: Second. FLUOROSCOPIC IMAGES: 1 FINDINGS: This image demonstrates pedicle screws at the L4, L5 and S1 levels. It is not possible to d etermine the number of screws located at these levels on lateral projection. IMPRESSION: Lateral fluoroscopic image demonstrating pedicle screws at the L4, L5 and S1 levels. Electronically signed by: Rob Snow M.D. 12/16/2018 12:29 PM
--- NOTE | 2018-12-16 12:54 | Post Operative Brief Note ---
Immediate Post Op Note v1 Date of Surgery December 16, 2018 Pre & Post Diagnosis Operation Date: 12/16/18 09:50 Pre-Op Diagnosis: Degenerative scoliosis and stenosis lumbar spine Post-Op Diagnosis: Degenerative scoliosis and stenosis lumbar spine Procedure Operation Date: 12/16/18 09:50 Actual Procedures p L3-L4, L4-L5, L5-S1 Laminectomy, L4-S1 Posterior Lumbar Fusion(Not Applicable) - Rivas Mast DO Surgeon Rivas Mast DO [employer] Estimated Blood Loss 200 Findings Consistent with Post-Op Diagnosis Drains Byers Catheter (16 Fr. ) and Hemovac Drain (10Fr. )
--- NOTE | 2018-12-16 13:17 | Anesthesiology Progress Note ---
Date of Service December 16, 2018 Anesthesia Post Procedure Vital Signs Vital Signs: Temp Pulse Pulse Resp BP Pulse Ox 12/16/18 13:15 64 12 168/80 H 96 12/16/18 13:05 72 15 169/84 H 100 12/16/18 12:55 80 13 168/78 H 97 12/16/18 12:49 97.2 F L 99 H 19 167/73 H 97 12/16/18 08:16 97.7 F 76 20 202/97 H 97 Pain Intensity Back: Pain Intensity: 0 Notes Mental Status: alert / awake / arousable and participated in evaluation Patient Amnestic to Procedure: Yes Nausea / Vomiting: adequately controlled Pain: adequately controlled Airway Patency, RR, SpO2: stable & adequate BP & HR: stable & adequate Hydration State: stable & adequate Anesthetic Complications: no major complications apparent and Pt Satisfied with anesthetic care
[2018-12-16] MEDS ORDERED: HYDROmorphone INJ 0.5 MG/0.5 ML SYR IV PRN (13:55)
[2018-12-16] MEDS ORDERED: BISACODYL 10 MG SUPP PR PRN (13:55)
[2018-12-16] MEDS ORDERED: OXYCODONE HCL IR 5 MG TAB (IMMEDIATE RELEASE) PO PRN (13:55)
[2018-12-16] MEDS ORDERED: MAGNESIUM HYDROXIDE SUSP 30 ML UDC PO PRN (13:55)
[2018-12-16] MEDS: SODIUM CHLORIDE 0.9% 1000ML 1,000 ML IV SCH (14:50)
[2018-12-16] MEDS: ONDANSETRON INJ 2 MG/ML 2 ML VIAL IV PRN (14:53)
--- NOTE | 2018-12-16 15:57 | Operative Report ---
DATE OF OPERATION: 12/16/2018 PREOPERATIVE DIAGNOSES: Degenerative scoliosis, severe spinal stenosis, nerve root compression, lumbar spine, L3-L4, L4-L5, L5-S1. POSTOPERATIVE DIAGNOSES: Degenerative scoliosis, severe spinal stenosis, nerve root compression, lumbar spine, L3-L4, L4-L5, L5-S1. PROCEDURES: Included a lumbar spine laminectomy, L3-L4, L4-L5, L5-S1, foraminotomy, partial facetectomy. We dug out significant amount of ligamentum flavum hypertrophy and bone osteophyte formation. Pedicle screw instrumentation, L4, L5 and S1. Posterior lateral fusion, L4, L5 and S1. SURGEON: Rivas Mast DO CODING SPEC: Betito Cummings PA-C. COMPLICATIONS: There were no apparent complications. BLOOD LOSS: Controlled at 150 mL. ANESTHETIC: General. DESCRIPTION OF PROCEDURE: The patient was taken to the operating room, a general intubated anesthetic provided to the patient, placed prone, scrubbed, prepped and draped sterile. We made a skin incision, fascial incision, came down on the lamina. We meticulously took off the lamina, compressed the neural foramen, decompressed the facet joints. The facet joints had completely overgrown on the right hand side, the affected side. We used Kerrison's osteotomes and Leksell rongeurs to evacuate the pressure. It was significant. I felt there was a little bit of instability because of her scoliosis. I did not want her to drift into any more iatrogenic instability, so I instrumented the patient, safely getting pedicle screws in at L4, L5 and S1. We then irrigated thoroughly with bone graft over the transverse process, L4, L5 and S1. We closed in layers over vancomycin powder over Hemovac drain with 1 Vicryl, 2-0 on the subcuticular, staple gun on the skin, sterile dressing applied. The patient returned to PACU stable. There were no apparent complications. I attest to the content of the Intraoperative Record and any orders documented therein. Any exception s are noted below.
[2018-12-16] MEDS ORDERED: HydrALAZINE HCL 20 MG/ML VIAL IV PRN (16:09)
[2018-12-16] MEDS ORDERED: PROMETHAZINE HCL 25 MG TAB PO PRN (16:27)
--- NOTE | 2018-12-16 16:46 | Hospitalist Consultation ---
Date of Consultation December 16, 2018 Assessment & Plan (1) Accelerated hypertension: (2) DM II (diabetes mellitus, type II), controlled: 73-year-old white female with past medical history of Diabetes, high cholesterol, hypertension, asthma, stomach ulcers admitted to Dr. Damon service because of right lower extremity difficulty, paresthesias. right lower extremity difficulty, paresthesias s/p lumbar spine laminectomy, L3-L4, L4-L5, L5-S1, foraminotomy, partial facetectomy: This condition, pain management, DVT prophylaxis, PT OT and discharge plan will be per primary team Nausea patient possible side effect of the anesthesia, continue supportive care Zofran as needed History of diabetic, hold metformin, start as above insulin sliding scale q. before meals and at bedtime Accelerated hypertension, continue home medication, start hydralazine as needed Thank you for the chance involved in care of the patient , will continue follow- up History of Present Illness Reason for Consultation: Medical manage Requesting Physician: Dr. Castillo Attending Physician: Rivas Mast, History of Present Illness 73-year-old white female with past medical history of Diabetes, high cholesterol, hypertension, asthma, stomach ulcers admitted to Dr. Damon service because of right lower extremity difficulty, paresthesias. Patient had elective surgery in a lumbar spine laminectomy, L3-L4, L4-L5, L5- S1, foraminotomy, partial facetectomy. When I interview with the patient she reported nausea aeration, no pain, nursing staff give some medicine for nausea does not help yet Denies fever chill, denies chest pain palpitation lower extremity swelling Denies cough sputum shortness of breath Denies facial droop or slurry speeches or local weakness Allergies Allergy/AdvReac Type Severity Reaction Status Date / Time azithromycin [From Zithromax] Allergy Rash Verified 12/16/18 08:12 Home Medications Home Medications Medication Instructions Recorded Confirmed Type acetaminophen [Tylenol Extra 500 mg PO Q6H PRN 11/27/18 12/16/18 History Strength] hydrochlorothiazide 25 mg PO QAM 11/27/18 12/16/18 History lisinopril 40 mg PO QPM 11/27/18 12/16/18 History metformin 750 mg PO BID 11/27/18 12/16/18 History omeprazole 20 mg PO QAM 11/27/18 12/16/18 History pravastatin 40 mg PO QPM 11/27/18 12/16/18 History Patient History Medical History Asthma CONTROLLED; NO LONGER USES INHALER Chronic back pain RIGHT HIP/RLE RADICULOPATHY Diabetes mellitus, type 2 NIDDM GERD (gastroesophageal reflux disease) CONTROLLED Hiatal hernia STABLE, LARGE PER 11/28/18 CXR Hyperlipidemia Hypertension Surgical History History of appendectomy History of carpal tunnel release B/L History of section X2 History of colonoscopy History of hysterectomy History of surgery GANGLION CYSTECTOMY History of total knee replacement B/L Social History Preferred Language: Uzbek Communication Ability: Effective Pyrometer Operator Required: No Beliefs That Will Affect Care: None Current Living Situation: Spouse Other Information That Helps Us Care for You: No Feels Safe at Home: Yes Safety Concerns: Feels Safe At This Time Smoking Status: Never smoker Hx Alcohol Use: No Hx Substance Use: No Review of Systems Review of systems were negative except in HPI Physical Exam Vital Signs (Past 24 Hours): Last Vital Signs Temp 36.2 C L 12/16/18 15:45 Pulse 94 H 12/16/18 15:45 Resp 16 12/16/18 15:45 BP 179/76 H 12/16/18 15:45 Pulse Ox 96 12/16/18 15:45 Physical Exam: General Appearance: Obesity, reported nausea aeration, pleasant conversational, WD/WN, no apparent distress, Eyes: normal inspection, PERRL, EOMI, sclerae normal ENT: normal ENT inspection, hearing grossly normal, pharynx normal Neck: supple, no adenopathy, thyroid normal, no JVD, no carotid bruits, trachea midline Respiratory/Chest: chest non-tender, normal breath sounds, no respiratory distress, no accessory muscle use, breath sounds, rales, wheezing Cardiovascular: regular rate, rhythm, no JVD, no murmur Abdomen: normal bowel sounds, non tender, soft, no organomegaly, Extremities: normal range of motion, non-tender, normal inspection, no pedal edema, no calf tenderness, normal capillary refill, pelvis stable, joint has no limited range of motion, capillary refill is normal, no cyanosis clubbing Neurologic/Psychiatric: flight communications operator II-XII nml as tested, no motor/sensory deficits, alert, normal mood/affect, oriented x 3 Skin: normal color, warm/dry, no rash Lymphatic: no adenopathy Results & Data Laboratory Results Laboratory Results - last 24 hr 12/16/18 12/16/18 08:12 12:52 POC Glucose 128 H 153 H
[2018-12-16] MEDS ORDERED: METFORMIN HCL 500 MG TAB PO SCH (17:00)
[2018-12-16] MEDS: ACETAMINOPHEN 1,000 MG/100 ML VIAL IV PRN (18:38)
[2018-12-16] MEDS: INSULIN ASPART 100 UNITS/ML 3 ML PEN SC SCH ×2 (18:45→20:55)
[2018-12-16] MEDS: CEFAZOLIN 2000MG 2,000 MG/15 ML SYR IV SCH (19:00)
[2018-12-16] MEDS ORDERED: PROMETHAZINE HCL 12.5 MG in SODIUM CHLORIDE 0.9% 50 ML IV PRN (19:09)
[2018-12-16] MEDS: PRAVASTATIN SOD 40 MG TAB PO SCH (20:54)
[2018-12-16] MEDS: DOCUSATE SODIUM/SENNA 50/8.6MG TAB PO SCH (20:58)
[2018-12-16] MEDS ORDERED: LISINOPRIL 40 MG TAB PO SCH (21:00)
[2018-12-16] MEDS: PANTOprazole 40 MG TAB PO SCH (23:24)
[2018-12-17] MEDS: CEFAZOLIN 2000MG 2,000 MG/15 ML SYR IV SCH (03:01)
[2018-12-17] MEDS: SODIUM CHLORIDE 0.9% 1000ML 1,000 ML IV SCH (03:58)
[2018-12-17 06:08] LABS: Basophils # (auto) 0.01 K/uL (0-0.2); Basophils % (auto) 0.1 %; Eosinophils # (auto) 0.01 K/uL (0-0.5); Eosinophils % (auto) 0.1 %; Hematocrit (blood only) 27.1 % (37-47); Hemoglobin 9.5 g/dL (12.0-16.0); Immature Granulocytes # (auto) 0.03 K/uL (0.00-0.02); Immature Granulocytes % (auto) 0.3 %; Lymphocytes # (auto) 1.35 K/uL (1.2-3.4); Lymphocytes % (auto) 15.7 %; Mean Corpuscular Hgb Conc 35.1 g/dL (32-36); Mean Corpuscular Volume 88.9 fL (80-100); Mean Platelet Volume 9.5 fL (7.4-10.4); Monocytes # (auto) 0.64 K/uL (0.11-0.59); Monocytes % (auto) 7.4 %; Neutrophils # (auto) 6.57 K/uL (1.4-6.5); Neutrophils % (auto) 76.4 %; Platelet Count 239 K/uL (130-400); RDW Coefficient of Variation 13.3 % (11.5-14.5); RDW Standard Deviation 43.3 fL (36.4-46.3); Red Blood Count 3.05 M/uL (4.2-5.4); White Blood Count 8.61 K/uL (4.8-10.8)
[2018-12-17 06:33] LABS: Calcium 7.5 mg/dl (8.5-10.1); Creatinine Clr Calc Pharmacy 69.5 ml/min; Est GFR (African American) 99.9; Est GFR (Non-African American) 86.2; Magnesium 1.4 mg/dl (1.8-2.4); Potassium 4.1 mmol/L (3.5-5.1)
--- NOTE | 2018-12-17 08:03 | Anesthesiology Progress Note ---
Date of Service December 17, 2018 Anesthesia Post Procedure Vital Signs Vital Signs: Temp Pulse Pulse Resp BP Pulse Ox 12/17/18 06:59 36.5 C 77 18 112/67 97 12/17/18 03:02 36.7 C 79 16 113/66 94 12/16/18 23:26 36.3 C L 78 16 152/79 H 96 12/16/18 20:52 82 16 156/84 H 12/16/18 19:31 36.4 C L 67 16 161/79 H 97 12/16/18 16:46 36.3 C L 67 16 178/82 H 99 12/16/18 15:45 36.2 C L 94 H 16 179/76 H 96 12/16/18 14:45 61 18 178/76 H 99 12/16/18 14:11 53 L 16 172/74 H 99 12/16/18 13:45 36.4 C L 57 L 12 174/77 H 100 12/16/18 13:40 66 13 175/81 H 99 12/16/18 13:25 36.2 C L 60 14 165/69 H 98 12/16/18 13:15 64 12 168/80 H 96 12/16/18 13:05 72 15 169/84 H 100 12/16/18 12:55 80 13 168/78 H 97 12/16/18 12:49 36.2 C L 99 H 19 167/73 H 97 12/16/18 08:16 36.5 C 76 20 202/97 H 97 Pain Intensity Back: Pain Intensity: 5 Notes Mental Status: alert / awake / arousable Patient Amnestic to Procedure: Yes Nausea / Vomiting: adequately controlled Pain: adequately controlled Airway Patency, RR, SpO2: stable & adequate BP & HR: stable & adequate Hydration State: stable & adequate Anesthetic Complications: no major complications apparent and Pt Satisfied with anesthetic care
[2018-12-17] MEDS: LACTATED RINGER'S 1,000 ML IV SCH ×2 (08:06→20:35)
[2018-12-17] MEDS: ONDANSETRON INJ 2 MG/ML 2 ML VIAL IV PRN (08:45)
[2018-12-17] MEDS: ACETAMINOPHEN 1,000 MG/100 ML VIAL IV PRN ×2 (08:45→20:35)
[2018-12-17] MEDS ORDERED: hydroCHLOROthiazide 25 MG TAB PO SCH (09:00)
[2018-12-17] MEDS ORDERED: SODIUM CHLORIDE 0.9% 1000ML 1,000 ML IV ONE (09:02)
[2018-12-17] MEDS: PANTOprazole 40 MG TAB PO SCH (09:11)
[2018-12-17] MEDS: INSULIN ASPART 100 UNITS/ML 3 ML PEN SC SCH ×4 (09:15→21:00)
[2018-12-17 10:54] LABS: Hematocrit (blood only) 27.8 % (37-47); Hemoglobin 9.4 g/dL (12.0-16.0); Mean Corpuscular Hgb Conc 33.8 g/dL (32-36); Mean Corpuscular Volume 89.1 fL (80-100); Mean Platelet Volume 9.6 fL (7.4-10.4); Platelet Count 225 K/uL (130-400); RDW Coefficient of Variation 13.5 % (11.5-14.5); RDW Standard Deviation 43.5 fL (36.4-46.3); Red Blood Count 3.12 M/uL (4.2-5.4); White Blood Count 9.67 K/uL (4.8-10.8)
[2018-12-17 11:17] LABS: BUN Creatinine Ratio 22.4 (10-20); Calcium 7.7 mg/dl (8.5-10.1); Creatinine Clr Calc Pharmacy 67.5 ml/min; Est GFR (African American) 98.9; Est GFR (Non-African American) 85.4; Potassium 3.9 mmol/L (3.5-5.1)
--- NOTE | 2018-12-17 12:15 | Progress Note ---
DATE: 12/17/2018 SUBJECTIVE: She is alert, oriented this morning, significant nausea, some vomiting. Lower extremity seems satisfactory. Good bowel sounds. Afebrile. ASSESSMENT: Postop nausea, reconstructive spine surgery. PLAN: Try to get her ambulatory today. I restarted some fluids. We will try to get her to [facility] hopefully in the next 24-48 hours. She may need to stay in the hospital until until she is really stable.
[2018-12-17] MEDS: MAGNESIUM OXIDE 400 MG TAB PO SCH (13:29)
--- NOTE | 2018-12-17 17:19 | Hospitalist Progress Note ---
Date of Service December 17, 2018 Assessment & Plan (1) Lumbar back pain: - S/P Lumbar laminectomy/foraminotomy/partial facetectomy on 12/16 - Surgical management per primary team Present on Admission?: Yes (2) Orthostatic hypotension: - Significant orthostasis this AM with systolics in the 60-70 - Responded adequately with fluid bolus this AM and will continue gentle hydration - Hold home BP medications - states she hasn't taken her HCTZ since pre- operative assessment due to hyponatremia - She did have a drop in hgb from baseline likely some acute blood loss from surgery but on repeat it is staying stable - will monitor but currently no indication for transfusion Present on Admission?: Yes (3) Accelerated hypertension: - ON 12/16 BP was significantly elevated which could be a component of stress/pain but given the orthostasis will monitor - Currently staying stable and will monitor Present on Admission?: Yes (4) DM II (diabetes mellitus, type II), controlled: - Hold metformin and cover with SSI Present on Admission?: Yes Subjective Pt with significant orthostasis this AM with systolics dropping into 60-70 range. Mentating appropriately but symptomatic with lightheadedness Improvement in BP with fluid bolus and not having orthostatic readings. Will hold BP medications today. States she actually hasn't taken her HCTZ for several days due to hyponatremia pre-operatively. She reports pain is undercontrol but a little more bothersome with movement. Verbalizes no complaints at this time Constitutional: + fatigue; no fever, no chills and no anorexia Eyes: no worsening vision Ear, Nose, Mouth, Throat: no sore throat and no dysphagia Respiratory: no cough and no dyspnea Cardiovascular: + lightheadedness; no chest pain, no palpitations and no edema Gastrointestinal: no abdominal pain, no nausea, no vomiting, no constipation and no diarrhea/loose stools Genitourinary (Female): no dysuria Musculoskeletal: + back pain (mostly with movement) Integumentary: no rash Neurologic: no tingling and no numbness Physical Exam Vital Signs (Past 24 Hours): Last Vital Signs Temp 36.7 C 12/17/18 15:07 Pulse 82 12/17/18 15:07 Resp 17 12/17/18 15:07 BP 129/75 12/17/18 15:07 Pulse Ox 98 12/17/18 15:07 Constitutional: WD/WN, vitals as above Eyes: + anicteric sclerae ENMT: Ears: no hearing impairment Neck: trachea midline Respiratory: normal respiratory effort, lungs clear to auscultation Cardiovascular: Rate/Rhythm: regular rate and regular rhythm Gastrointestinal (Abdomen): Inspection/Auscultation: normal bowel sounds Percussion/Palpation: abdomen nontender and + abdomen not soft Musculoskeletal: Head/Neck/Chest: normocephalic, head atraumatic and neck supple Skin: no rashes, warm and dry Neurologic: moves all extremities Psychiatric: A+Ox3, euthymic affect
[2018-12-17] MEDS: PRAVASTATIN SOD 40 MG TAB PO SCH (20:35)
[2018-12-17] MEDS: DOCUSATE SODIUM/SENNA 50/8.6MG TAB PO SCH (20:35)
[2018-12-18] MEDS: ACETAMINOPHEN 1,000 MG/100 ML VIAL IV PRN (06:16)
[2018-12-18 08:46] LABS: Hematocrit (blood only) 24.1 % (37-47); Hemoglobin 8.2 g/dL (12.0-16.0); Mean Corpuscular Volume 90.6 fL (80-100); Mean Platelet Volume 9.4 fL (7.4-10.4); Platelet Count 201 K/uL (130-400); RDW Coefficient of Variation 13.7 % (11.5-14.5); RDW Standard Deviation 45.1 fL (36.4-46.3); Red Blood Count 2.66 M/uL (4.2-5.4); White Blood Count 5.74 K/uL (4.8-10.8)
[2018-12-18] MEDS: LACTATED RINGER'S 1,000 ML IV SCH (09:15)
[2018-12-18] MEDS: INSULIN ASPART 100 UNITS/ML 3 ML PEN SC SCH ×2 (09:16→13:50)
[2018-12-18] MEDS: PANTOprazole 40 MG TAB PO SCH (09:17)
[2018-12-18] MEDS: MAGNESIUM OXIDE 400 MG TAB PO SCH (09:17)
[2018-12-18 09:36] LABS: BUN Creatinine Ratio 17.6 (10-20); Calcium 7.9 mg/dl (8.5-10.1); Creatinine Clr Calc Pharmacy 87.5 ml/min; Est GFR (African American) 107.7; Potassium 3.9 mmol/L (3.5-5.1)
[2018-12-18 12:10] LABS: Hematocrit (blood only) 26.7 % (37-47); Hemoglobin 8.9 g/dL (12.0-16.0)
--- NOTE | 2018-12-18 15:47 | Hospitalist Progress Note ---
Date of Service December 18, 2018 Assessment & Plan (1) Lumbar back pain: - S/P Lumbar laminectomy/foraminotomy/partial facetectomy on 12/16 - Surgical management per primary team (2) Orthostatic hypotension: - Significant orthostasis on 12/17 with systolics in the 60-70 - Responded adequately with fluid bolus and now completely resolved - She has not had her HCTZ since pre-operative assessment due to hyponatremia. Recommend that she can continue her Lisinopril at night and hold HCTZ until she talks to her PCP -- Could likely resume with BMP x 1 week after to assess Na levels however could consider an alternative to her BP - Upon admission she had very high blood pressures but now average is around 130/60s - will need ongoing monitoring (3) Accelerated hypertension: - ON 12/16 BP was significantly elevated which could be a component of stress/pain but then developed orthostasis as above - Currently staying stable (4) DM II (diabetes mellitus, type II), controlled: - May resume Metformin on D/C Subjective Patient reports feeling a lot better today. BP better and no longer orthostatic. Ambulating the halls well She did have a drop of Hgb to 8.2 but on repeat is now 8.9 and asymptomatic. She reports pain under control and is planning on returning home today. Constitutional: no fever, no chills and no fatigue Ear, Nose, Mouth, Throat: no sore throat and no dysphagia Respiratory: no cough and no dyspnea Cardiovascular: no chest pain, no palpitations, no lightheadedness and no edema Gastrointestinal: no abdominal pain, no nausea, no vomiting, no constipation and no diarrhea/loose stools Genitourinary (Female): no dysuria Integumentary: no rash Physical Exam Vital Signs (Past 24 Hours): Last Vital Signs Temp 36.8 C 12/18/18 11:41 Pulse 82 12/18/18 11:41 Resp 16 12/18/18 11:41 BP 121/69 12/18/18 11:41 Pulse Ox 93 12/18/18 11:41 Constitutional: WD/WN, vitals as above Eyes: + anicteric sclerae ENMT: Ears: no hearing impairment Neck: trachea midline Respiratory: normal respiratory effort, lungs clear to auscultation Cardiovascular: Rate/Rhythm: regular rate and regular rhythm Gastrointestinal (Abdomen): Inspection/Auscultation: normal bowel sounds Percussion/Palpation: abdomen nontender and + abdomen not soft Musculoskeletal: Head/Neck/Chest: normocephalic, head atraumatic and neck supple Skin: no rashes, warm and dry Neurologic: moves all extremities Psychiatric: A+Ox3, euthymic affect
--- NOTE | 2018-12-19 00:37 | Discharge Summary ---
SUBJECTIVE: She is alert and oriented. Minimal complaints of pain, taking p.o. No chest pain, shortness of breath or nausea. Wound is clean, dry. ASSESSMENT: Status post lumbar spine reconstructive surgery. PLAN: We will discharge her home later on today. INSTRUCTIONS AND PRECAUTIONS: She has a brace for support. She has a followup appointment. She has a prescription for [place] on her chart.
== END 2018-12-18 14:25 | disposition home or self-care (01) | DRG 460 ==
LOC: ASU 07:52 → 3E 12:59

== ENCOUNTER 2020-03-05 19:33 | Inpatient (IN) ==
[2020-03-05] MEDS ORDERED: SODIUM CHLORIDE 0.9% 500 ML IV SCH (21:15)
[2020-03-05 21:24] LABS: Basophils # (auto) 0.01 K/uL (0-0.2); Basophils % (auto) 0.2 %; Eosinophils # (auto) 0.03 K/uL (0-0.5); Eosinophils % (auto) 0.5 %; Hematocrit (blood only) 36.3 % (37-47); Hemoglobin 13.2 g/dL (12.0-16.0); Immature Granulocytes # (auto) 0.01 K/uL (0.00-0.02); Immature Granulocytes % (auto) 0.2 %; Lymphocytes # (auto) 1.27 K/uL (1.2-3.4); Lymphocytes % (auto) 21.5 %; Mean Corpuscular Hemoglobin 30.1 pg (25-34); Mean Corpuscular Hgb Conc 36.4 g/dL (32-36); Mean Corpuscular Volume 82.7 fL (80-100); Mean Platelet Volume 9.5 fL (7.4-10.4); Monocytes # (auto) 0.66 K/uL (0.11-0.59); Monocytes % (auto) 11.1 %; Neutrophils # (auto) 3.94 K/uL (1.4-6.5); Neutrophils % (auto) 66.5 %; Platelet Count 298 K/uL (130-400); RDW Coefficient of Variation 12.6 % (11.5-14.5); RDW Standard Deviation 37.8 fL (36.4-46.3); Red Blood Count 4.39 M/uL (4.2-5.4); White Blood Count 5.92 K/uL (4.8-10.8)
[2020-03-05 21:48] LABS: Albumin Level 3.9 gm/dl (3.4-5.0); BUN Creatinine Ratio 25.5 (10-20); Calcium 8.9 mg/dl (8.5-10.1); Creatinine Clr Calc Pharmacy 55.5 ml/min; Est GFR (African American) 82.3; Potassium 3.1 mmol/L (3.5-5.1)
[2020-03-05 21:49] LABS: Albumin Globulin Ratio 1.2 (0.9-2); Bilirubin,Total 0.4 mg/dl (0.2-1); Globulin 3.3 gm/dl (2.5-4.0); Total Protein 7.2 gm/dl (6.4-8.2)
[2020-03-05] MEDS ORDERED: SODIUM CHLORIDE 0.9% 1000ML 500 ML IV ONE (22:02)
[2020-03-05] MEDS ORDERED: MoRPHine SULFATE 2 MG/ML CARP IV STA (22:02)
[2020-03-05] MEDS ORDERED: ONDANSETRON INJ 2 MG/ML 2 ML VIAL IV STA (22:02)
--- NOTE | 2020-03-05 22:08 | Emergency Department Note ---
History of Present Illness General Chief complaint: Headache Stated complaint: HEADACHE, ABDOMINAL PAIN Time Seen by Provider: 03/05/20 21:53 Source: patient History of Present Illness Provider complaint: Headache Onset (ago): day(s) 2 Location: head Radiation: non-radiation Severity: severe Maximum Pain Intensity: 10 Quality: + aching Relieved By: + none Associated symptoms: + nausea/vomiting; no chest pain, no cough, no fever/chills and no shortness of breath This is a 74-year-old female who presents with a headache for the past 2 days. The headache is located over her forehead bilaterally. She describes it as an aching sensation. She rates it as severe. No modifying factors. It was not brown dden in onset. She had a similar headache a year ago and was seen here for it. She does have a history of migraines. She denies any focal numbness or weakness. She did have some vomiting associated with her pain. She denies any fever, cough or cold symptoms, chest pain, shortness breath, abdominal pain or known COVID exposure. She did have some diarrhea today. Home Medications Home Medications Medication Instructions Recorded Confirmed Type acetaminophen [Tylenol Extra 500 mg PO Q6H PRN 11/27/18 03/05/20 History Strength] omeprazole 20 mg PO QAM 11/27/18 03/05/20 History fluticasone propionate 50 1 sprays INTNAS BID #9.9 gm 03/03/19 03/05/20 Rx mcg/actuation nasal spray,suspension knladlrmtw-rzvjaaqleozui-ipjn 1 cap PO Q8H PRN #14 cap 03/07/19 03/05/20 Rx [Fioricet] hydrochlorothiazide 25 mg tablet See Rx Instructions .ROUTE 09/04/19 03/05/20 Rx .COMPLEX #90 tablet metformin 750 mg tablet,extended See Rx Instructions .ROUTE 09/22/19 03/05/20 Rx release 24 hr .COMPLEX #180 each pravastatin 40 mg tablet See Rx Instructions .ROUTE 09/22/19 03/05/20 Rx .COMPLEX #90 each lisinopril 40 mg tablet See Rx Instructions .ROUTE 10/27/19 03/05/20 Rx .COMPLEX #90 each blood sugar diagnostic #50 ea 02/24/20 Rx Allergies Allergy/AdvReac Type Severity Reaction Status Date / Time azithromycin [From Zithromax] Allergy Rash Verified 03/05/20 23:56 ciprofloxacin [From Cipro] Allergy Unknown Verified 03/05/20 23:56 morphine AdvReac Hypotension Verified 03/05/20 23:56 Past Med/Surg History Medical History (Updated 03/06/20 @ 01:39 by Edy Greene MD) Asthma CONTROLLED; NO LONGER USES INHALER Asthma (Chronic) Chronic back pain RIGHT HIP/RLE RADICULOPATHY Diabetes mellitus, type 2 NIDDM DM II (diabetes mellitus, type II), controlled (Chronic) GERD (gastroesophageal reflux disease) CONTROLLED Headache (Acute) Hiatal hernia STABLE, LARGE PER 11/28/18 CXR Hyperlipidemia Hyperlipidemia (Chronic) Hypertension Hypertension (Chronic) Irregular heart rate (Acute) Surgical History History of appendectomy History of carpal tunnel release B/L History of section X2 History of colonoscopy History of hysterectomy History of surgery GANGLION CYSTECTOMY History of total knee replacement B/L Family History Father Colorectal cancer Denies family history of Ovarian cancer Prostate cancer Myocardial infarction Breast cancer Social History Preferred Language: Citizen Of The [place] Communication Ability: Effective Visual Impairment: No Limitations Bee Raiser Required: No Beliefs That Will Affect Care: None marital status: Current Living Situation: Spouse current occupational status: retired Other Information That Helps Us Care for You: No Feels Safe at Home: Yes Safety Concerns: Feels Safe At This Time Smoking Status: Never smoker Do You Dip or Chew Tobacco: No ; Second Hand Exposure: No ; Tobacco Cessation Education Requested by Patient: No Hx Alcohol Use: No Hx Substance Use: No Seatbelt Use: always Review of Systems See HPI for pertinent positives & negatives. and A total of 10 systems reviewed and were otherwise negative Physical Exam Vital Signs Vital Signs - 24 hr 03/05/20 19:39 03/05/20 21:13 03/05/20 22:22 Temperature 36.9 C Temperature Source Oral Pulse Rate 75 85 Pulse Rate [Apical] 85 Pulse Rate from SpO2 Sensor 68 Respiratory Rate 20 22 22 Respiratory Effort / Characteristics Non-Labored Spontaneous Respiratory Depth Normal Blood Pressure 113/70 132/82 Blood Pressure [Right Arm] 138/64 Blood Pressure Mean 84 100 Blood Pressure Mean [Right Arm] 88 Blood Pressure Position [Right Arm] Lying Pulse Oximetry 97 97 96 Oxygen Delivery Method Room Air Room Air Sepsis Action Taken by Nursing No Action Required 03/05/20 22:23 03/05/20 22:30 03/05/20 22:43 Temperature Temperature Source Pulse Rate 79 54 L Pulse Rate [Apical] 82 Pulse Rate from SpO2 Sensor 62 56 L Respiratory Rate 20 18 26 H Respiratory Effort / Characteristics Respiratory Depth Blood Pressure 125/74 60/38 L Blood Pressure [Right Arm] 132/82 Blood Pressure Mean 98 40 Blood Pressure Mean [Right Arm] 98 Blood Pressure Position [Right Arm] Lying Pulse Oximetry 96 93 97 Oxygen Delivery Method Sepsis Action Taken by Nursing 03/05/20 22:44 03/05/20 22:46 03/05/20 22:49 Temperature Temperature Source Pulse Rate 55 L 50 L 55 L Pulse Rate [Apical] Pulse Rate from SpO2 Sensor 52 L 55 L Respiratory Rate 18 20 21 Respiratory Effort / Characteristics Respiratory Depth Blood Pressure 59/40 L 59/37 L 52/43 L Blood Pressure [Right Arm] Blood Pressure Mean 46 47 49 Blood Pressure Mean [Right Arm] Blood Pressure Position [Right Arm] Pulse Oximetry 95 93 Oxygen Delivery Method Sepsis Action Taken by Nursing 03/05/20 22:50 03/05/20 22:51 03/05/20 22:56 Temperature Temperature Source Pulse Rate 67 62 73 Pulse Rate [Apical] Pulse Rate from SpO2 Sensor 55 L 60 66 Respiratory Rate 23 30 H 18 Respiratory Effort / Characteristics Respiratory Depth Blood Pressure 79/46 L 111/56 L Blood Pressure [Right Arm] Blood Pressure Mean 57 50 68 Blood Pressure Mean [Right Arm] Blood Pressure Position [Right Arm] Pulse Oximetry 92 92 96 Oxygen Delivery Method Sepsis Action Taken by Nursing 03/05/20 23:00 03/05/20 23:14 03/05/20 23:30 Temperature Temperature Source Pulse Rate 72 66 67 Pulse Rate [Apical] Pulse Rate from SpO2 Sensor 68 66 67 Respiratory Rate 21 23 23 Respiratory Effort / Characteristics Respiratory Depth Blood Pressure 130/60 148/67 H 128/64 Blood Pressure [Right Arm] Blood Pressure Mean 77 78 84 Blood Pressure Mean [Right Arm] Blood Pressure Position [Right Arm] Pulse Oximetry 98 97 97 Oxygen Delivery Method Room Air Room Air Sepsis Action Taken by Nursing Constitutional: Vital signs reviewed. Eyes: Pupils are equal round reactive to light. Conjunctiva are noninjected. ENT: Pharynx is clear without erythema or exudate. Mucous membranes are moist. Neck supple without meningeal signs. Respiratory: Clear to auscultation bilaterally. Breath sounds are equal bilaterally. Cardiovascular: Regular rate and rhythm. No rubs or gallops. GI: Soft, nondistended and nontender. Bowel sounds are present. Musculoskeletal: No peripheral edema. No lower extremity tenderness. Integumentary: No cyanosis. or jaundice. Neurologic: The patient is awake and alert. Cranial nerves II-XII are intact. Motor is 5 out of 5 all extremities. Sensation is intact to light touch all extremities. Normal speech. No pronator drift. Psychiatric: Normal affect. Not anxious appearing. Course Administered Medications Discontinued Medications Sodium Chloride (Nss) 500 mls @ 999 mls/hr IV .Q31M DAYANNA Stop: 03/05/20 21:45 Last Infusion: 03/05/20 21:46 Dose: 0 mls/hr Documented by: [id number] Admin: 03/05/20 21:15 Dose: 999 mls/hr Documented by: [id number] Sodium Chloride (Nss 1000ml) 500 mls @ 999 mls/hr IV .Q31M ONE Stop: 03/05/20 22:32 Last Infusion: 03/05/20 23:05 Dose: 0 mls/hr Documented by: [id number] Admin: 03/05/20 22:20 Dose: 999 mls/hr Documented by: [id number] Morphine Sulfate (Morphine Sulfate) 2 mg IV NOW STA Stop: 03/05/20 22:03 Last Admin: 03/05/20 22:19 Dose: 2 mg Documented by: [id number] Ondansetron HCl (Zofran) 4 mg IV NOW STA Stop: 03/05/20 22:03 Last Admin: 03/05/20 22:19 Dose: 4 mg Documented by: [id number] Medical Decision Making Differential Diagnosis Migraine, ICH, tension headache, metabolic derangement, meningitis Medical Records Attestation: I reviewed the patient's medical records. The patient was seen in March of last year for headache. She had a CT angiogram of the head and neck as well as a CT of the head which was unremarkable. Home Medications Current Medication List: was personally reviewed by me Laboratory Data Attestation: I reviewed the patient's lab results. Result diagrams: 03/05/20 21:15 03/05/20 22:53 Lab Results 03/05/20 03/05/20 03/05/20 Range/Units 21:15 21:15 22:53 WBC 5.92 (4.8-10.8) K/uL RBC 4.39 (4.2-5.4) M/uL Hgb 13.2 (12.0-16.0) g/dL Hct 36.3 L (37-47) % MCV 82.7 (80-100) fL MCH 30.1 (25-34) pg MCHC 36.4 H (32-36) g/dL RDW Std Deviation 37.8 (36.4-46.3) fL RDW Coeff of Rachelle 12.6 (11.5-14.5) % Plt Count 298 (130-400) K/uL MPV 9.5 (7.4-10.4) fL Immature Gran % (Auto) 0.2 % Neut % (Auto) 66.5 % Lymph % (Auto) 21.5 % [place] % (Auto) 11.1 % Eos % (Auto) 0.5 % Baso % (Auto) 0.2 % Immature Gran # (Auto) 0.01 (0.00-0.02) K/uL Neut # (Auto) 3.94 (1.4-6.5) K/uL Lymph # (Auto) 1.27 (1.2-3.4) K/uL [place] # (Auto) 0.66 H (0.11-0.59) K/uL Eos # (Auto) 0.03 (0-0.5) K/uL Baso # (Auto) 0.01 (0-0.2) K/uL Sodium 116 L* 122 L D (136-145) mmol/L Potassium 3.1 L 3.0 L (3.5-5.1) mmol/L Chloride 82 L 90 L (98-107) mmol/L Carbon Dioxide 21 21 (21-32) mmol/L Anion Gap 14.0 H 11.0 (3-11) BUN 21 H 21 H (7-18) mg/dl Creatinine 0.81 0.72 (0.6-1.2) mg/dl Est Cr Clr Drug Dosing 55.5 62.4 ml/min Est GFR ( Amer) 82.3 94.9 Est GFR (Non-Af Amer) 71.0 81.9 BUN/Creatinine Ratio 25.5 H 29.2 H (10-20) Glucose 154 H 127 H (70-99) mg/dl Calcium 8.9 7.5 L D (8.5-10.1) mg/dl Total Bilirubin 0.4 (0.2-1) mg/dl AST 15 (15-37) U/L ALT 25 (12-78) U/L Alkaline Phosphatase 68 (45-117) U/L Total Protein 7.2 (6.4-8.2) gm/dl Albumin 3.9 (3.4-5.0) gm/dl Globulin 3.3 (2.5-4.0) gm/dl Albumin/Globulin Ratio 1.2 (0.9-2) Imaging Data Radiologist's Impression: CT HEAD: Compared to 03/07/19 No acute intracranial process. Mild involutional and microvascular ischemic changes. Radiologist: Burke Quiroz M.D. Study ready at 21:50 and initial results transmitted at 21:59 ECG Data Attestation: I personally reviewed and interpreted this ECG as follows: Indication: + other (Bradycardia) Rate (beats per minute): 66 Rhythm: + normal sinus ECG Intervals/blocks: + First degree AV block and + Normal QT ECG ST segments: no ST elevation ECG Findings: + PVCs Blood Pressure Blood Pressure Findings: Elevated blood pressure Blood Pressure Disposition: further management by hospitalist [facility] Narrative I did evaluate the patient as noted above. The patient is presenting with a headache. She had a similar headache a year ago and had an extensive work-up entailing CT angiogram of the head and neck. On exam she is neurologically intact. IV access was established. I did order and review the patient's blood work as noted in the electronic medical record. CBC is unremarkable without leukocytosis or anemia. Electrolytes demonstrate severe hyponatremia. Her sodium is 116. She was given normal saline here. I also treated her with a small dose of morphine 2 mg IV and Zofran 4 mg IV. I did order a CT of the head. I did review the images myself as well as the radiology report as described above. There is no evidence of acute intracranial abnormality. I did recommend hospitalization due to her low sodium. I did discuss case with the hospitalist and shelter case manager. The hospitalist went to evaluate the patient. While she was talking to the patient she stated that the patient stated she felt very nauseated and lightheaded. She became bradycardic and hypotensive at that time. I did go evaluate the patient and she appears to be having a vagal reaction. She was given IV fluids and a twelve-lead EKG was obtained. My interpretation is as above. I did place an order for continuous cardiac monitoring. The monitor showed normal sinus rhythm with a rate of 62. During the event she also had a heart rate in the low 50s. Eventually the patient's blood pressure improved and she felt better. She was admitted to the floor. Impression & Plan Hyponatremia, Headache, Bradycardia Discharge Plan Visit Data *Final* Discharge Date/Time: 03/06/20 00:25 Chief Complaint: Headache Stated Complaint: HEADACHE, ABDOMINAL PAIN ED Provider: Edy Greene Discharge Problem: Hyponatremia, Headache, Bradycardia Patient Disposition: Admitted As Inpatient Discharge Instructions Interventions: ED Discharge Assessment Last Done: 03/06/20 00:25 Discharge Problem: Headache Qualifiers: Headache type: unspecified Headache chronicity pattern: acute headache Intractability: not intractable Qualified Code(s): R51 - Headache
[2020-03-05 23:25] LABS: BUN Creatinine Ratio 29.2 (10-20); Calcium 7.5 mg/dl (8.5-10.1); Creatinine Clr Calc Pharmacy 62.4 ml/min; Est GFR (African American) 94.9; Est GFR (Non-African American) 81.9
--- NOTE | 2020-03-05 23:25 | History & Physical Report ---
Date of Service March 05, 2020 Assessment & Plan (1) Hyponatremia: [id number]. Patient with severe HENRY, otherwise no neurological complaints. No seizure, confusion or AMS. Most likely multifactorial - she appears hypovolemic on exam, also on HCTZ. -Admit to PCU -Check Urine and Serum Osm, Urine Na, TSH -Na 116 --> 122 after NSS x 1 L administered in ER. Cautious correction, goal to increase serum Na by 8-10 mmol/24 hours -NSS at 125mL/hr -Check Chemistry panel q 4 hours -Nephrology consultation appreciated Present on Admission?: Yes (2) Headache: Patient with 3 days of severe HENRY. Has history of migraine in the past which was unilateral. ?if today's HENRY is symptom of her acute hyponatremia -Tylenol PRN -Fioricet PRN -Morphine has been added to allergy list causing acute hypotension -Correction of Na as above Present on Admission?: Yes (3) Hypertension: Patient with transient episode of hypotension after receiving morphine and zofran in the ER. Presently normotensive and hemodynamically stable -Hold HCTZ in setting of hyponatremia -Continue Lisinopril 40mg po daily withholding parameters Present on Admission?: Yes (4) Hyperlipidemia: Chronic. -Continue Pravastatin 40mg po daily Present on Admission?: Yes (5) Asthma: Chronic, Stable. No medications used -Continue to monitor Present on Admission?: Yes (6) DM II (diabetes mellitus, type II), controlled: Blood sugar = 154 -Hold Metformin -Lantus 5u BID and ISS, goal blood sugar 100 - 140 F/E/N - NSS at 125mL/hr x 2 liters, BMP q 4 hours - correction of K with 60meq PO elixir and 20meq in NSS, check Mg, PO4 and ICal and replete as needed, Heart Healthy/CC diet as tolerated Ppx - low risk for DVT Code - Full Dispo - Admit to PCU Present on Admission?: Yes Admission and Anticipated Discharge Date Admission Date: 03/05/20 Anticipated date of discharge: 03/07/20 History of Present Illness Chief Complaint: Hyponatremia Primary Care Provider: JADE Castro Reyna Edwards is a 74yo C female with history of DM, HTN, HLP and GERD presenting with headache and hyponatremia. She reports three days of severe, bandlike pain across the front of her head associated with nausea and dry hea ving. She has been unable to tolerate PO intake. Symptoms have been worsening over the last three days. She denies seizures, numbness/weakness or confusion. No fevers/chills/CP/palpitations. She had one episode of diarrhea in the ER and reports some dizziness with positional changes. On arrival to the ER she was found to be afebrile, HD stable. Intake labs revealed a Na of 116. She was administered Morphine 2mg and Zofran 4mg. Patient developed nausea and became acutely hypotensive and bradycardic. She was placed in trendelenburg position and given NSS x 500mL bolus. EKG was obtained which showed sinus bradycardia with first degree AV block and frequent PVCs. Patient's hemodynamics improved. ER Course: Morphine, Zofran, NSS x 1L Allergies Allergy/AdvReac Type Severity Reaction Status Date / Time azithromycin [From Zithromax] Allergy Rash Verified 03/05/20 23:56 ciprofloxacin [From Cipro] Allergy Unknown Verified 03/05/20 23:56 morphine AdvReac Hypotension Verified 03/05/20 23:56 Home Medications Home Medications Medication Instructions Recorded Confirmed Type acetaminophen [Tylenol Extra 500 mg PO Q6H PRN 11/27/18 03/05/20 History Strength] omeprazole 20 mg PO QAM 11/27/18 03/05/20 History fluticasone propionate 50 1 sprays INTNAS BID #9.9 gm 03/03/19 03/05/20 Rx mcg/actuation nasal spray,suspension frdheeowbx-mwrpcggjwzcnd-lami 1 cap PO Q8H PRN #14 cap 03/07/19 03/05/20 Rx [Fioricet] hydrochlorothiazide 25 mg tablet See Rx Instructions .ROUTE 09/04/19 03/05/20 Rx .COMPLEX #90 tablet metformin 750 mg tablet,extended See Rx Instructions .ROUTE 09/22/19 03/05/20 Rx release 24 hr .COMPLEX #180 each pravastatin 40 mg tablet See Rx Instructions .ROUTE 09/22/19 03/05/20 Rx .COMPLEX #90 each lisinopril 40 mg tablet See Rx Instructions .ROUTE 10/27/19 03/05/20 Rx .COMPLEX #90 each blood sugar diagnostic #50 ea 02/24/20 Rx Past Med/Surg History Medical History Asthma CONTROLLED; NO LONGER USES INHALER Asthma (Chronic) Chronic back pain RIGHT HIP/RLE RADICULOPATHY Diabetes mellitus, type 2 NIDDM DM II (diabetes mellitus, type II), controlled (Chronic) GERD (gastroesophageal reflux disease) CONTROLLED Hiatal hernia STABLE, LARGE PER 11/28/18 CXR Hyperlipidemia Hyperlipidemia (Chronic) Hypertension Hypertension (Chronic) Irregular heart rate (Acute) Surgical History History of appendectomy History of carpal tunnel release B/L History of section X2 History of colonoscopy History of hysterectomy History of surgery GANGLION CYSTECTOMY History of total knee replacement B/L Family History Father Colorectal cancer Denies family history of Ovarian cancer Prostate cancer Myocardial infarction Breast cancer Social History Preferred Language: Georgian Communication Ability: Effective Visual Impairment: No 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 Beliefs That Will Affect Care: None marital status: Current Living Situation: Spouse current occupational status: retired Other Information That Helps Us Care for You: No Feels Safe at Home: Yes Safety Concerns: Feels Safe At This Time Smoking Status: Never smoker Do You Dip or Chew Tobacco: No ; Second Hand Exposure: No ; Tobacco Cessation Education Requested by Patient: No Hx Alcohol Use: No Hx Substance Use: No Seatbelt Use: always Review of Systems Review of Systems: All systems reviewed & are unremarkable except as noted in HPI & below Physical Exam Physical Exam: General: patient resting comfortably, NAD, non-toxic in appearance, AA&O x 4 Skin: warm, dry, intact, no rashes or lesions HEENT: NC/AT, PERRL, EOMI, anicteric sclera, conjunctiva without injection, external ear normal to inspection and nontender, nares patent, dry mucus membranes, dentition intact, no oropharyngeal lesions, neck supple, trachea midline, no LAD, no thyromegaly, no JVD Heart: +S1/S2, regular, bradycardic, no m/r/g Lungs: equal air entry bilaterally, no rales/rhonchi/wheezes Abd: +BS, soft, NT/ND, no masses/organomegaly/ascites Ext: warm, 2+ pulses in UE/LE bilaterally, no clubbing/cyanosis or edema Neuro: nonfocal, patient AA&O x 4, speech intact, no facial droop, moving all extremities on command with equal strength 5/5 Results & Data Results & Data ([facility]) Vital Signs (Past 12 Hours) Vital Signs Temp Pulse Pulse Resp BP BP Pulse Ox 03/05/20 23:14 66 23 148/67 H 97 03/05/20 23:00 72 21 130/60 98 03/05/20 22:56 73 18 111/56 L 96 03/05/20 22:51 62 30 H 79/46 L 92 03/05/20 22:50 67 23 92 03/05/20 22:49 55 L 21 52/43 L 93 03/05/20 22:46 50 L 20 59/37 L 03/05/20 22:44 55 L 18 59/40 L 95 03/05/20 22:43 54 L 26 H 60/38 L 97 03/05/20 22:30 79 18 125/74 93 03/05/20 22:23 82 20 132/82 96 03/05/20 22:22 85 22 132/82 96 03/05/20 21:13 85 22 138/64 97 03/05/20 19:39 36.9 C 75 20 113/70 97 Laboratory Results Lab Results 03/05/20 03/05/20 03/05/20 Range/Units 21:15 21:15 22:53 WBC 5.92 (4.8-10.8) K/uL RBC 4.39 (4.2-5.4) M/uL Hgb 13.2 (12.0-16.0) g/dL Hct 36.3 L (37-47) % MCV 82.7 (80-100) fL MCH 30.1 (25-34) pg MCHC 36.4 H (32-36) g/dL RDW Std Deviation 37.8 (36.4-46.3) fL RDW Coeff of Rachelle 12.6 (11.5-14.5) % Plt Count 298 (130-400) K/uL MPV 9.5 (7.4-10.4) fL Immature Gran % (Auto) 0.2 % Neut % (Auto) 66.5 % Lymph % (Auto) 21.5 % [place] % (Auto) 11.1 % Eos % (Auto) 0.5 % Baso % (Auto) 0.2 % Immature Gran # (Auto) 0.01 (0.00-0.02) K/uL Neut # (Auto) 3.94 (1.4-6.5) K/uL Lymph # (Auto) 1.27 (1.2-3.4) K/uL [place] # (Auto) 0.66 H (0.11-0.59) K/uL Eos # (Auto) 0.03 (0-0.5) K/uL Baso # (Auto) 0.01 (0-0.2) K/uL Sodium 116 L* 122 L D (136-145) mmol/L Potassium 3.1 L 3.0 L (3.5-5.1) mmol/L Chloride 82 L 90 L (98-107) mmol/L Carbon Dioxide 21 21 (21-32) mmol/L Anion Gap 14.0 H 11.0 (3-11) BUN 21 H 21 H (7-18) mg/dl Creatinine 0.81 0.72 (0.6-1.2) mg/dl Est Cr Clr Drug Dosing 55.5 62.4 ml/min Est GFR ( Amer) 82.3 94.9 Est GFR (Non-Af Amer) 71.0 81.9 BUN/Creatinine Ratio 25.5 H 29.2 H (10-20) Glucose 154 H 127 H (70-99) mg/dl Calcium 8.9 7.5 L D (8.5-10.1) mg/dl Total Bilirubin 0.4 (0.2-1) mg/dl AST 15 (15-37) U/L ALT 25 (12-78) U/L Alkaline Phosphatase 68 (45-117) U/L Total Protein 7.2 (6.4-8.2) gm/dl Albumin 3.9 (3.4-5.0) gm/dl Globulin 3.3 (2.5-4.0) gm/dl Albumin/Globulin Ratio 1.2 (0.9-2) Diagnostic Findings CT Head - compared to 03/07/19 - No acute intracranial process. Mild involutional and microvascular ischemic changes. ECG Additional Comments: Sinus bradycardia with 1st degree AV block, normal intervals, no acute ischemic changes, +PVCs Code Status & VTE Plan Code Status FULL PG Care Time/CCT Total # of Minutes Spent Total Time Spent with Patient: Total time spent is greater than 50% in coordination of care (as documented) at patient's floor/unit and/or counseling patient: Coding Level of Care Code 74697 Initial Inpt Care Lvl 3 Diagnoses Hyponatremia E87.1 Headache R51 Headache type: unspecified Headache chronicity pattern: acute headache Intractability: not intractable Hypertension I10 Hypertension type: essential hypertension Hyperlipidemia E78.5 Hyperlipidemia type: unspecified Asthma J45.20 Asthma severity: mild Asthma persistence: intermittent Asthma complication type: uncomplicated DM II (diabetes mellitus, type II), controlled E11.9 Diabetes mellitus behavioral instructor insulin use: without behavioral instructor use Diabetes mellitus complication status: without complication (1) Hypertension Hypertension type: essential hypertension Qualified Code(s): I10 - Essential (primary) hypertension (2) Hyperlipidemia Hyperlipidemia type: unspecified Qualified Code(s): E78.5 - Hyperlipidemia, unspecified (3) Asthma Asthma severity: mild Asthma persistence: intermittent Asthma complication type: uncomplicated Qualified Code(s): J45.20 - Mild intermittent asthma, uncomplicated (4) DM II (diabetes mellitus, type II), controlled Diabetes mellitus behavioral instructor insulin use: without fdc use Diabetes mellitus complication status: without complication Qualified Code(s): E11.9 - Type 2 diabetes mellitus without complications (5) Headache Headache type: unspecified Headache chronicity pattern: acute headache Intractability: not intractable Qualified Code(s): R51 - Headache
[2020-03-06] MEDS ORDERED: CARBOHYDRATES FOR HYPOGLYCEMIA PO PRN (00:58)
[2020-03-06] MEDS ORDERED: DEXTROSE 50% 50 ML SYRINGE IV PRN (00:58)
[2020-03-06] MEDS ORDERED: GLUCOSE 10 TABS/TUBE PO PRN (00:58)
[2020-03-06] MEDS ORDERED: POTASSIUM CHLORIDE 20 MEQ/15 ML UDC PO STA (00:58)
[2020-03-06] MEDS ORDERED: ACETAMINOPHEN 325 MG TAB PO PRN (00:58)
[2020-03-06] MEDS ORDERED: GLUCAGON FOR INJ 1 MG VIAL SQ PRN (00:58)
[2020-03-06] MEDS ORDERED: GLUCOSE 40% GEL 15 GM TUBE PO PRN (00:58)
[2020-03-06] MEDS ORDERED: BUTALBITAL/ACETAMIN/CAFFEINE TAB PO PRN (01:09)
[2020-03-06] MEDS: NSS + 20MEQ KCL 20 MEQ/1,000 ML BAG IV SCH ×2 (01:56→10:13)
[2020-03-06 03:20] LABS: Basophils # (auto) 0.01 K/uL (0-0.2); Basophils % (auto) 0.2 %; Eosinophils # (auto) 0.02 K/uL (0-0.5); Eosinophils % (auto) 0.4 %; Hematocrit (blood only) 33.6 % (37-47); Hemoglobin 12.3 g/dL (12.0-16.0); Immature Granulocytes # (auto) 0.01 K/uL (0.00-0.02); Immature Granulocytes % (auto) 0.2 %; Lymphocytes # (auto) 1.22 K/uL (1.2-3.4); Lymphocytes % (auto) 23.8 %; Mean Corpuscular Hemoglobin 30.3 pg (25-34); Mean Corpuscular Hgb Conc 36.6 g/dL (32-36); Mean Corpuscular Volume 82.8 fL (80-100); Mean Platelet Volume 9.2 fL (7.4-10.4); Monocytes # (auto) 0.46 K/uL (0.11-0.59); Neutrophils # (auto) 3.41 K/uL (1.4-6.5); Neutrophils % (auto) 66.4 %; Platelet Count 295 K/uL (130-400); RDW Coefficient of Variation 12.4 % (11.5-14.5); RDW Standard Deviation 37.8 fL (36.4-46.3); Red Blood Count 4.06 M/uL (4.2-5.4); White Blood Count 5.13 K/uL (4.8-10.8)
[2020-03-06 03:41] LABS: BUN Creatinine Ratio 28.9 (10-20); Calcium 7.9 mg/dl (8.5-10.1); Creatinine Clr Calc Pharmacy 68.6 ml/min; Est GFR (African American) 100.2; Est GFR (Non-African American) 86.4; Magnesium 1.4 mg/dl (1.8-2.4); Potassium 4.5 mmol/L (3.5-5.1)
[2020-03-06 03:50] LABS: Phosphorus 2.8 mg/dl (2.5-4.9); Thyroid Stimulating Hormone 1.01 uIu/ml (0.300-4.500)
[2020-03-06] MEDS ORDERED: CALCIUM GLUCONATE 10% 10 ML VIAL IV STA (04:34)
[2020-03-06] MEDS ORDERED: CALCIUM GLUCONATE 10% 1,000 MG in SODIUM CHLORIDE 0.9% 50 ML IV ONE (04:45)
[2020-03-06] MEDS: MAGNESIUM SULFATE / D5W 1 GM/100 ML BAG IV SCH ×2 (05:06→06:51)
--- NOTE | 2020-03-06 07:10 | CT Scan Report ---
CT head/brain wo con CT DOSE: 537.48 mGy.cm HISTORY: Mental status change Headache TECHNIQUE: Multiaxial CT images of the head were performed without the use of intravenous contrast. A dose lowering technique was utilized adhering to the principles of ALARA. Comparison: None. Findings: The paranasal sinuses and mastoid air cells are clear. The calvarium and skull base are int act. The ventricles and sulci are within normal limits. There is no mass, hematoma, midline shift, or acute infarct. Impression: No acute intracranial abnormality. ACT 112: Negative or not required by law. The above report was generated using voice recognition software. It may contain grammatical, syntax or spelling errors. Electronically signed by: Lew Recinos M.D. 03/06/2020 7:09 AM
[2020-03-06 08:10] LABS: BUN Creatinine Ratio 28.5 (10-20); Calcium 8.9 mg/dl (8.5-10.1); Creatinine Clr Calc Pharmacy 82.4 ml/min; Est GFR (African American) 106.3; Est GFR (Non-African American) 91.8; Potassium 3.7 mmol/L (3.5-5.1)
[2020-03-06] MEDS: INSULIN GLARGINE SOLOSTAR 100 UNITS/ML 3 ML PEN SC SCH ×2 (08:22→20:43)
[2020-03-06] MEDS: INSULIN ASPART 100 UNITS/ML 3 ML PEN SC SCH ×4 (08:23→20:32)
[2020-03-06] MEDS: PANTOprazole 40 MG TAB PO SCH (08:26)
[2020-03-06] MEDS: FLUTICASONE PROPIONATE NA SPR 16 GM BTL SCH ×2 (08:26→20:43)
[2020-03-06 11:16] LABS: BUN Creatinine Ratio 20.1 (10-20); Calcium 8.4 mg/dl (8.5-10.1); Creatinine Clr Calc Pharmacy 70.8 ml/min; Est GFR (African American) 101.2; Est GFR (Non-African American) 87.3; Potassium 3.8 mmol/L (3.5-5.1)
--- NOTE | 2020-03-06 12:10 | Nephrology Consultation ---
Date of Consultation March 06, 2020 Assessment & Plan (1) Hyponatremia: Acute on chronic. Symptomatic on admission. Hypovolemic on presentation. Appears relatively euvolemic at this time. However, Uosm remains slightly high. Serum sodium has been correcting acceptably. CT head from admission reviewed. Will continue intravascular volume expansion with IVF and close monitoring. No change in fluids was provided. Adequate potassium replacement for hypokalemia is being provided. Clinical presentation consistent with HCTZ, dehydration, and decreased oral solute intake. Document I/O's. Continue to closely monitor serum sodium q 4 hours. Avoid a rate of correction over >0.5 mmol/L/hr. Goal should be to maintain sodium less than 126 mmol/L within first 24 hours of admission and assume that auto-correction may occur. Hold HCTZ. (2) Hypertension: BP remains acceptable. HCTZZ held. History of Present Illness Reason for Consultation: Hyponatremia Requesting Physician: Mere Wahl MD Attending Physician: Mere Wahl MD History of Present Illness Reyna Edwards is a 74-year-old female with hypertension, DMII, OA/DJD, chronic back pain, and asthma. She presented to [facility] from home yesterday with a severe headache. Headache had been progressively worsening over approximately 4 days. Associated symptoms included anorexia and severe nausea. Reyna has had similar headaches in the past. She was evaluated at [facility] ER in March 2019 with accelerated hypertension and a headache. She has also been maintained on treatment for migraine type headaches. Reyna's symptoms have significantly improved today. She has mild persistent discomfort in the area of her frontal sinuses and states that she has experienced sinus headaches and congestion seasonally for years. Evaluation in the ER was notable for a serum s odium of 116 mmol/L and potassium of 3 mmol/L. Sodium was 131 mEq/L when checked in August 2019. Mild chronic hyponatremia has been attributed to use of HCTZ. Creatinine is normal. 1 L of NSS was provided in the ER. IV pain medications were provided and Reyna became transiently hypotensive. Serum sodium improved to 122 mmol/L after initial fluid challenge. mIVF has been provided with 0.9% NaCl + 20 mEq KCl @ 125 ml/hr. HCTZ has been held. Serum sodium is 123 mmol/L. Uosm was 410 this AM. BP is acceptable. Appetite has improved. Reyna denied any nausea at the time of my assessment. Chronic sinus bradycardia with 1 degree AV block. BP acceptable since admission. Patient denies significant alcohol or NSAID use. Allergies Allergy/AdvReac Type Severity Reaction Status Date / Time azithromycin [From Zithromax] Allergy Rash Verified 03/05/20 23:56 ciprofloxacin [From Cipro] Allergy Unknown Verified 03/05/20 23:56 morphine AdvReac Hypotension Verified 03/05/20 23:56 Home Medications Home Medications Medication Instructions Recorded Confirmed Type acetaminophen [Tylenol Extra 500 mg PO Q6H PRN 11/27/18 03/05/20 History Strength] omeprazole 20 mg PO QAM 11/27/18 03/05/20 History fluticasone propionate 50 1 sprays INTNAS BID #9.9 gm 03/03/19 03/05/20 Rx mcg/actuation nasal spray,suspension [id number] 1 cap PO Q8H PRN #14 cap 03/07/19 03/05/20 Rx [Fioricet] hydrochlorothiazide 25 mg tablet See Rx Instructions .ROUTE 09/04/19 03/05/20 Rx .COMPLEX #90 tablet metformin 750 mg tablet,extended See Rx Instructions .ROUTE 09/22/19 03/05/20 Rx release 24 hr .COMPLEX #180 each pravastatin 40 mg tablet See Rx Instructions .ROUTE 09/22/19 03/05/20 Rx .COMPLEX #90 each lisinopril 40 mg tablet See Rx Instructions .ROUTE 10/27/19 03/05/20 Rx .COMPLEX #90 each blood sugar diagnostic #50 ea 02/24/20 Rx Patient History Medical History (Updated 03/06/20 @ 01:39 by Edy Greene MD) Asthma CONTROLLED; NO LONGER USES INHALER Asthma (Chronic) Chronic back pain RIGHT HIP/RLE RADICULOPATHY Diabetes mellitus, type 2 NIDDM DM II (diabetes mellitus, type II), controlled (Chronic) GERD (gastroesophageal reflux disease) CONTROLLED Headache (Acute) Hiatal hernia STABLE, LARGE PER 11/28/18 CXR Hyperlipidemia Hyperlipidemia (Chronic) Hypertension Hypertension (Chronic) Irregular heart rate (Acute) Surgical History History of appendectomy History of carpal tunnel release B/L History of section X2 History of colonoscopy History of hysterectomy History of surgery GANGLION CYSTECTOMY History of total knee replacement B/L Family History Father Colorectal cancer Denies family history of Ovarian cancer Prostate cancer Myocardial infarction Breast cancer Social History Preferred Language: Swazi Communication Ability: Effective Visual Impairment: No Limitations [employer] Required: No Beliefs That Will Affect Care: None marital status: Current Living Situation: Spouse current occupational status: retired Other Information That Helps Us Care for You: No Feels Safe at Home: Yes Safety Concerns: Feels Safe At This Time Smoking Status: Never smoker Do You Dip or Chew Tobacco: No ; Second Hand Exposure: No ; Tobacco Cessation Education Requested by Patient: No Hx Alcohol Use: No Hx Substance Use: No Seatbelt Use: always Review of Systems Review of Systems: All systems reviewed & are unremarkable except as noted in HPI & below Physical Exam Constitutional: well developed; no acute distress Eyes: no scleral abnormality and no corneal abnormality ENMT: Mouth: no oral mucosal abnormality and oral mucous membranes not dry Neck: normal visual inspection and trachea midline Respiratory: normal respiratory effort Auscultation: lungs clear to auscultation bilaterally Cardiovascular: Rate/Rhythm: regular rate Heart Sounds: normal S1 and normal S2 Extremities: no edema Musculoskeletal: Extremities: no cyanosis and no clubbing Skin: normal turgor; no lesions Neurologic: Motor/Sensory: no tremor and no asterixis Psychiatric: Orientation: alert and oriented x 3 Results & Data Vital Signs (Past 12 Hours) Vital Signs Temp Pulse Pulse Resp BP Pulse Ox 03/06/20 07:37 36.6 C 59 L 20 135/71 96 03/06/20 07:35 67 03/06/20 03:31 36.6 C 63 20 144/79 H 97 03/06/20 00:59 36.4 C L 71 20 179/68 H 98 Laboratory Results Laboratory Results - last 24 hr 03/05/20 03/05/20 03/05/20 21:15 21:15 22:53 WBC 5.92 RBC 4.39 Hgb 13.2 Hct 36.3 L MCV 82.7 MCH 30.1 MCHC 36.4 H RDW Std Deviation 37.8 RDW Coeff of Rachelle 12.6 Plt Count 298 MPV 9.5 Immature Gran % (Auto) 0.2 Neut % (Auto) 66.5 Lymph % (Auto) 21.5 Randolph % (Auto) 11.1 Eos % (Auto) 0.5 Baso % (Auto) 0.2 Immature Gran # (Auto) 0.01 Neut # (Auto) 3.94 Lymph # (Auto) 1.27 Randolph # (Auto) 0.66 H Eos # (Auto) 0.03 Baso # (Auto) 0.01 Sodium 116 L* 122 L D Potassium 3.1 L 3.0 L Chloride 82 L 90 L Carbon Dioxide 21 21 Anion Gap 14.0 H 11.0 BUN 21 H 21 H Creatinine 0.81 0.72 Est Cr Clr Drug Dosing 55.5 62.4 Est GFR ( Amer) 82.3 94.9 Est GFR (Non-Af Amer) 71.0 81.9 BUN/Creatinine Ratio 25.5 H 29.2 H Glucose 154 H 127 H POC Glucose Osmolality Calcium 8.9 7.5 L D Ionized Calcium Phosphorus Magnesium Total Bilirubin 0.4 AST 15 ALT 25 Alkaline Phosphatase 68 Total Protein 7.2 Albumin 3.9 Globulin 3.3 Albumin/Globulin Ratio 1.2 TSH Urine Osmolality Ur Random Sodium 03/06/20 03/06/20 03/06/20 02:59 02:59 02:59 WBC 5.13 RBC 4.06 L Hgb 12.3 Hct 33.6 L MCV 82.8 MCH 30.3 MCHC 36.6 H RDW Std Deviation 37.8 RDW Coeff of Rachelle 12.4 Plt Count 295 MPV 9.2 Immature Gran % (Auto) 0.2 Neut % (Auto) 66.4 Lymph % (Auto) 23.8 Randolph % (Auto) 9.0 Eos % (Auto) 0.4 Baso % (Auto) 0.2 Immature Gran # (Auto) 0.01 Neut # (Auto) 3.41 Lymph # (Auto) 1.22 Randolph # (Auto) 0.46 Eos # (Auto) 0.02 Baso # (Auto) 0.01 Sodium Potassium Chloride Carbon Dioxide Anion Gap BUN Creatinine Est Cr Clr Drug Dosing Est GFR ( Amer) Est GFR (Non-Af Amer) BUN/Creatinine Ratio Glucose POC Glucose Osmolality 256 L Calcium Ionized Calcium 0.99 L Phosphorus Magnesium Total Bilirubin AST ALT Alkaline Phosphatase Total Protein Albumin Globulin Albumin/Globulin Ratio TSH Urine Osmolality Ur Random Sodium 03/06/20 03/06/20 03/06/20 02:59 06:20 06:20 WBC RBC Hgb Hct MCV MCH MCHC RDW Std Deviation RDW Coeff of Rachelle Plt Count MPV Immature Gran % (Auto) Neut % (Auto) Lymph % (Auto) Randolph % (Auto) Eos % (Auto) Baso % (Auto) Immature Gran # (Auto) Neut # (Auto) Lymph # (Auto) Randolph # (Auto) Eos # (Auto) Baso # (Auto) Sodium 122 L Potassium 4.5 D Chloride 90 L Carbon Dioxide 22 Anion Gap 10.0 BUN 19 H Creatinine 0.66 Est Cr Clr Drug Dosing 68.6 Est GFR ( Amer) 100.2 Est GFR (Non-Af Amer) 86.4 BUN/Creatinine Ratio 28.9 H Glucose 125 H POC Glucose Osmolality Calcium 7.9 L Ionized Calcium Phosphorus 2.8 Magnesium 1.4 L Total Bilirubin AST ALT Alkaline Phosphatase Total Protein Albumin Globulin Albumin/Globulin Ratio TSH 1.010 Urine Osmolality 420 L Ur Random Sodium 89 03/06/20 03/06/20 03/06/20 07:03 07:15 10:45 WBC RBC Hgb Hct MCV MCH MCHC RDW Std Deviation RDW Coeff of Rachelle Plt Count MPV Immature Gran % (Auto) Neut % (Auto) Lymph % (Auto) Randolph % (Auto) Eos % (Auto) Baso % (Auto) Immature Gran # (Auto) Neut # (Auto) Lymph # (Auto) Randolph # (Auto) Eos # (Auto) Baso # (Auto) Sodium 122 L 123 L Potassium 3.7 D 3.8 Chloride 90 L 92 L Carbon Dioxide 23 22 Anion Gap 9.0 9.0 BUN 16 13 Creatinine 0.55 L 0.64 Est Cr Clr Drug Dosing 82.4 70.8 Est GFR ( Amer) 106.3 101.2 Est GFR (Non-Af Amer) 91.8 87.3 BUN/Creatinine Ratio 28.5 H 20.1 H Glucose 116 H 126 H POC Glucose 119 H Osmolality Calcium 8.9 8.4 L Ionized Calcium Phosphorus Magnesium Total Bilirubin AST ALT Alkaline Phosphatase Total Protein Albumin Globulin Albumin/Globulin Ratio TSH Urine Osmolality Ur Random Sodium 03/06/20 11:28 WBC RBC Hgb Hct MCV MCH MCHC RDW Std Deviation RDW Coeff of Rachelle Plt Count MPV Immature Gran % (Auto) Neut % (Auto) Lymph % (Auto) Randolph % (Auto) Eos % (Auto) Baso % (Auto) Immature Gran # (Auto) Neut # (Auto) Lymph # (Auto) Randolph # (Auto) Eos # (Auto) Baso # (Auto) Sodium Potassium Chloride Carbon Dioxide Anion Gap BUN Creatinine Est Cr Clr Drug Dosing Est GFR ( Amer) Est GFR (Non-Af Amer) BUN/Creatinine Ratio Glucose POC Glucose 109 H Osmolality Calcium Ionized Calcium Phosphorus Magnesium Total Bilirubin AST ALT Alkaline Phosphatase Total Protein Albumin Globulin Albumin/Globulin Ratio TSH Urine Osmolality Ur Random Sodium PG Care Time/CCT Total # of Minutes Spent Total Time Spent with Patient: Total time spent is greater than 50% in coordination of care (as documented) at patient's floor/unit and/or counseling patient: Coding Level of Care Code 08499 Inpt Consult Level 4 Diagnoses Hyponatremia E87.1 Hypertension I10 Hypertension type: essential hypertension (1) Hypertension Hypertension type: essential hypertension Qualified Code(s): I10 - Essential (primary) hypertension
--- NOTE | 2020-03-06 15:24 | Hospitalist Progress Note ---
Date of Service March 06, 2020 Assessment & Plan (1) Hyponatremia: Ms. Edwards is a 74yo female with a PMHx of HTN, HLD, DMII, Asthma, GERD and migraines with hyponatremia. Hyponatremia -Pt presented with headache, abdominal pain and N/V. Denied any seizure-like activity -Head CT unremarkable -Serum Na 116, urine Na of 89, serum osm decreased at 256, urine osm decreased at 420. TSH normal. -Appears to be hypovolemic hyponatremia in the setting of dehydration secondary to decreased PO intake, HCTZ use and compounded by diarrhea/vomitting. -Appreciate nephrology recommendations: "-Will continue intravascular volume expansion with IVF and close monitoring. -No change in fluids was provided. -Adequate potassium replacement for hypokalemia is being provided. -Document I/O's. -Continue to closely monitor serum sodium q 4 hours. -Avoid a rate of correction over >0.5 mmol/L/hr. -Goal should be to maintain sodium less than 126 mmol/L within first 24 hours of admission and assume that auto-correction may occur. -Hold HCTZ" -will keep goal Na<126 until 9PM tonight -hold NSS with K+ @125mls/hr currently as most recent Wg=[id number]. Will restart NSS after 9PM. -continue q4h BMP monitoring Hypokalemia -3.1 on admission -replete as needed -currently resolved per q4h BMP trends above Hypomagnesemia, Hypocalcemia -Mag 1.4, ionized calcium of 0.99 on admission -replete as needed -trend with AM labs Acute Headache in the setting of Hx of migraines -currently resolved -likely secondary to hyponatremia above -continue PRN Tylenol and Fiorocet HTN -hold home HCTZ as potential contributory cause of hyponatremia -continue home Lisinopril 40mg daily DMII -Hgb A1c of 7.0 noted in Aug 2019 -Hold home metformin -ISS HLD -continue home pravastatin 40mg PO daily Asthma -stable FEN/GI: Holding NSS for last noted Na of 126. DMII/Heart healthy diet DVT prophylaxis: SCDs ordered CODE STATUS: full Dispo: home with resolution of symptomatic hyponatremia Admission and Anticipated Discharge Date Admission Date: March 05, 2020 Anticipated date of discharge: 03/07/20 Supervising Physician Co-Signing Physician Notes Resident Physician Supervision Note: I independently interviewed and examined the patient and verified the ott history and physical, reviewed labs and image studies, discussed the case with the resident Dr. Reynaga and agree with the findings and care plan. Subjective Pt seen this AM. States headache has resolved, denies any seizure-like activity. Has been able to eat breakfast. Admits to some diarrhea while hospitalized. Denies changes to vision, cough, runny nose, sore throat, dizziness, chest pain, SOB, palpitations, abdominal pain, N/V, constipation, swelling in hands or feet or numbness or tingling anywhere. Review of Systems Review of Systems: All systems reviewed & are unremarkable except as noted in Subjective Physical Exam Physical Exam: General: Alert, oriented. No acute distress laying in bed talking on the phone. Skin: No noted rashes or bruises Psych: Appropriate mood and affect Neuro: No gross deficits HEENT: NC/AT Chest: Nontender to palpation. CV: RRR, Normal s1, s2. No murmurs appreciated Resp: Breath sounds clear bilaterally, no increased effort of breathing. No crackles/rhonchi/rales. Abdomen: BS+. Soft, nontender, nondistended. No guarding. No organomegaly appreciated. Extremities: No edema in lower extremities bilaterally. Results & Data Results & Data ([facility]) Vital Signs (Past 12 Hours) Vital Signs Temp Pulse Pulse Resp BP Pulse Ox 03/06/20 12:44 36.6 C 85 22 139/72 97 03/06/20 07:37 36.6 C 59 L 20 135/71 96 03/06/20 07:35 67 03/06/20 03:31 36.6 C 63 20 144/79 H 97 Resident Activity Tracking Resident Involvement: Resident Care Provided Care Provided: Adult Hospital Medicine
[2020-03-06 15:30] LABS: BUN Creatinine Ratio 14.2 (10-20); Calcium 8.3 mg/dl (8.5-10.1); Creatinine Clr Calc Pharmacy 58.8 ml/min; Est GFR (African American) 87.5; Est GFR (Non-African American) 75.5; Potassium 4.2 mmol/L (3.5-5.1)
[2020-03-06] MEDS ORDERED: lisinopriL 40 MG TAB PO SCH (17:00)
[2020-03-06] MEDS ORDERED: PRAVASTATIN SOD 40 MG TAB PO SCH (17:00)
[2020-03-06 19:55] LABS: BUN Creatinine Ratio 18.3 (10-20); Calcium 8.4 mg/dl (8.5-10.1); Creatinine Clr Calc Pharmacy 73.1 ml/min; Est GFR (African American) 102.2; Est GFR (Non-African American) 88.2; Potassium 3.9 mmol/L (3.5-5.1)
--- NOTE | 2020-03-06 22:02 | Electrocardiogram Report ---
Test Reason : Blood Pressure : / mmHG Vent. Rate : 066 BPM Atrial Rate : 066 BPM P-R Int : 242 ms QRS Dur : 086 ms QT Int : 402 ms P-R-T Axes : 057 040 020 degrees QTc Int : 421 ms Sinus rhythm with 1st degree A-V block with occasional Premature ventricular complexes and Premature atrial complexes Low voltage QRS Cannot rule out Inferior infarct , age undetermined Abnormal ECG When compared with ECG of 07-MAR-2019 14:47, Premature atrial complexes are now Present [place] interval has increased Confirmed by Edy Kim ([id number]) on 03/06/2020 10:01:55 PM Referred By: REFERRED SELF Confirmed By:Edy Kim
[2020-03-06 23:07] LABS: BUN Creatinine Ratio 19.4 (10-20); Calcium 8.8 mg/dl (8.5-10.1); Creatinine Clr Calc Pharmacy 85.5 ml/min; Est GFR (African American) 107.6; Est GFR (Non-African American) 92.9
[2020-03-07 07:10] LABS: Calcium 8.3 mg/dl (8.5-10.1); Creatinine Clr Calc Pharmacy 90.5 ml/min; Est GFR (African American) 109.7; Est GFR (Non-African American) 94.7; Magnesium 1.7 mg/dl (1.8-2.4); Potassium 3.6 mmol/L (3.5-5.1)
[2020-03-07] MEDS: FLUTICASONE PROPIONATE NA SPR 16 GM BTL SCH (08:06)
[2020-03-07] MEDS: INSULIN ASPART 100 UNITS/ML 3 ML PEN SC SCH (08:07)
[2020-03-07] MEDS: INSULIN GLARGINE SOLOSTAR 100 UNITS/ML 3 ML PEN SC SCH (08:07)
[2020-03-07] MEDS: PANTOprazole 40 MG TAB PO SCH (08:09)
[2020-03-07] MEDS ORDERED: CALCIUM CARBONATE 500 MG CHEWABLE TAB PO SCH (09:00)
[2020-03-07] MEDS ORDERED: MAGNESIUM OXIDE 400 MG TAB PO SCH (09:00)
[2020-03-07] MEDS ORDERED: ERGOCALCIFEROL 50,000 UNITS CAP PO SCH (10:00)
[2020-03-07] MEDS ORDERED: POTASSIUM CHLORIDE 20 MEQ TABCR PO STA (10:09)
[2020-03-07 10:38] LABS: BUN Creatinine Ratio 11.3 (10-20); Calcium 8.6 mg/dl (8.5-10.1); Creatinine Clr Calc Pharmacy 66.5 ml/min; Est GFR (African American) 99.2; Est GFR (Non-African American) 85.6; Potassium 3.8 mmol/L (3.5-5.1)
--- NOTE | 2020-03-07 10:53 | Discharge Summary ---
Date of Service March 07, 2020 Admission HPI Per Admitting Provider Reyna Edwards is a 74yo C female with history of DM, HTN, HLP and GERD presenting with headache and hyponatremia. She reports three days of severe, bandlike pain across the front of her head associated with nausea and dry heaving. She has been unable to tolerate PO intake. Symptoms have been worsening over the last three days. She denies seizures, numbness/weakness or confusion. No fevers/chills/CP/palpitations. She had one episode of diarrhea in the ER and reports some dizziness with positional changes. On arrival to the ER she was found to be afebrile, HD stable. Intake labs revealed a Na of 116. She was administered Morphine 2mg and Zofran 4mg. Patient developed nausea and became acutely hypotensive and bradycardic. She was placed in trendelenburg position and given NSS x 500mL bolus. EKG was obtained which showed sinus bradycardia with first degree AV block and frequent PVCs. Patient's hemodynamics improved. ER Course: Morphine, Zofran, NSS x 1L Admission Exam Per Admitting Provider Physical Exam: General: patient resting comfortably, NAD, non-toxic in appearance, AA&O x 4 Skin: warm, dry, intact, no rashes or lesions HEENT: NC/AT, PERRL, EOMI, anicteric sclera, conjunctiva without injection, external ear normal to inspection and nontender, nares patent, dry mucus membranes, dentition intact, no oropharyngeal lesions, neck supple, trachea midline, no LAD, no thyromegaly, no JVD Heart: +S1/S2, regular, bradycardic, no m/r/g Lungs: equal air entry bilaterally, no rales/rhonchi/wheezes Abd: +BS, soft, NT/ND, no masses/organomegaly/ascites Ext: warm, 2+ pulses in UE/LE bilaterally, no clubbing/cyanosis or edema Neuro: nonfocal, patient AA&O x 4, speech intact, no facial droop, moving all extremities on command with equal strength 5/5 Principal Diagnosis Hyponatremia Discharge Exam General: Alert, oriented. No acute distress laying in bed. Skin: No noted rashes or bruises Psych: Appropriate mood and affect Neuro: No gross deficits HEENT: NC/AT Chest: Nontender to palpation. CV: RRR, Normal s1, s2. No murmurs appreciated Resp: Breath sounds clear bilaterally, no increased effort of breathing. No crackles/rhonchi/rales. Abdomen: BS+. Soft, nontender, nondistended. No guarding. No organomegaly appreciated. Extremities: No edema in lower extremities bilaterally. Discharge Data Allergies Allergy/AdvReac Type Severity Reaction Status Date / Time azithromycin [From Zithromax] Allergy Rash Verified 03/05/20 23:56 ciprofloxacin [From Cipro] Allergy Unknown Verified 03/05/20 23:56 morphine AdvReac Hypotension Verified 03/05/20 23:56 Consultations 03/05/20 22:02 ED Decision to Admit Stat 03/06/20 00:58 Consult Nephrology Routine Ordered Studies 03/05/20 21:05 CT head/brain wo con Urgent Hospital Course (1) Hyponatremia: Ms. Edwards is a 74yo female with a PMHx of HTN, HLD, DMII, Asthma, GERD and migraines with hypovolemic hyponatremia and other electrolyte abnormalities. Pt was admitted on March 05 and discharged on March 07 2020. Hyponatremia -Pt presented with headache, abdominal pain and N/V. Denied any seizure-like activity -Head CT unremarkable -On admission, Serum Na 116, urine Na of 89, serum osm decreased at 256, urine osm decreased at 420. TSH normal. -Appeared to be hypovolemic hyponatremia in the setting of dehydration secondary to decreased PO intake, HCTZ use and compounded by diarrhea/vomitting. -Appreciated nephrology recommendations: "...continue intravascular volume expansion with IVF and close monitoring. -Continue to closely monitor serum sodium q 4 hours. -Avoid a rate of correction over >0.5 mmol/L/hr. -Goal should be to maintain sodium less than 126 mmol/L within first 24 hours of admission and assume that auto-correction may occur. -Hold HCTZ" -Serum sodium 127 on discharge and appeared to be autocorrecting. Of note, pt appears to have a baseline of ~130 -Counseled on staying hydrated. Hypokalemia -3.1 on admission -repleted as needed -currently resolved on discharge. Hypomagnesemia, Hypocalcemia -Mag 1.4, ionized calcium of 0.99 on admission -repleted as needed -On discharge still decreased Mag of 1.7 and ionized calcium of 1.07 -Vitamin D level decreased at 14.5 -Discharged with 1 weeks supply of magnesium oxide 400mg BID and calcium carbonate 1500mg TID -consider Vit D supplementation as well. Acute Headache in the setting of Hx of migraines -currently resolved -likely secondary to hyponatremia above -continue home Tylenol and Fiorocet HTN -stopped home HCTZ as potential contributory cause of hyponatremia -continued home Lisinopril 40mg daily and added amlodipine 5mg on discharge DMII -Hgb A1c of 7.0 noted in Aug 2019 -restarted home metformin on discharge HLD -continue home pravastatin 40mg PO daily Asthma -stable Total Time Total Time Spent Total Time Spent (In Minutes): See attending documentation Discharge Plan Discharge Items Patient Disposition: Home - Self-Care Reason For Visit: HYPONATREMIA Discharge Diagnosis: Hyponatremia Activity: Per Instructions section Non-emergency contact: Primary Care Provider Call non-emergency contact if: your symptoms worsen and your pain is unusual for you Follow-up/Referrals: Margaret Pond CRNP [Primary Care Provider] - Diet: Carb Consistent or DM2 Addtl Attending Provider Instructions: Grace, you are being discharged. -We ask that you continue to eat and drink as much as possible at home. See the handout that tells you what and how much you can drink in a day. -STOP taking the medication HYDROCHLOROTHIAZIDE that you used for your blood pressure. -CONTINUE taking your home Lisinopril 40mg and the new medication amlodipine 5mg for your blood pressure. -We are also discharging you with some supplements to help keep your levels up in your blood. Take the calcium carbonate three times a day for the next week, and the magnesium oxide twice a day for the next week. It is very important that you follow up with your primary care doctor in the next week after leaving the hospital. They will keep an eye on your blood pressure and blood levels of your electrolytes(sodium, potassium, magnesium and calcium) as well as prescribe you more medications that you may need. If your symptoms come back, especially your headache or you pass out, get confused or have a seizure, please go directly to the emergency room. It was a pleasure taking care of you during your stay here! Pending Studies at Discharge: No Stand-Alone Forms: My [facility] Wattpad, Smoking Cessation Medications and DC Order Prescriptions: New magnesium oxide 400 mg (241.3 mg magnesium) Tablet 400 mg PO BID 7 Days Qty: 14 RF: 0 calcium carbonate [Tums] 200 mg calcium (500 mg) Tablet,Chewable 1,500 mg PO TID 7 Days Qty: 157.5 RF: 0 amlodipine 5 mg tablet 5 mg PO DAILY Qty: 30 RF: 0 Continued pravastatin 40 mg tablet See Rx Instructions .ROUTE .COMPLEX Qty: 90 RF: 3 metformin 750 mg tablet extended release 24 hr See Rx Instructions .ROUTE .COMPLEX Qty: 180 RF: 3 lisinopril 40 mg tablet See Rx Instructions .ROUTE .COMPLEX Qty: 90 RF: 1 (DME) blood sugar diagnostic [LontraTouch Ultra Blue Test Strip] Strip See Rx Instructions .ROUTE .MEDSUPPLY Qty: 50 RF: 5 fluticasone propionate [Allergy Relief (fluticasone)] 50 mcg/actuation spray,suspension 1 sprays INTNAS BID Qty: 9.9 RF: 2 acetaminophen [Tylenol Extra Strength] 500 mg Tablet 500 mg PO Q6H PRN (Reason: Pain) RF: 0 omeprazole 20 mg Capsule,Delayed Release(Dr/Ec) 20 mg PO QAM RF: 0 [id number]-yaakwdbcemklh-gelw [Fioricet] 50-300-40 mg capsule 1 cap PO Q8H PRN (Reason: headac) Qty: 14 RF: 0 Discontinued hydrochlorothiazide 25 mg tablet See Rx Instructions .ROUTE .COMPLEX Qty: 90 RF: 3 Discharge Orders: Discharge Order (Routine); Ordered 03/07/20 Ordered By: Faiza Mayo/Other Patient Handouts: Amlodipine, ED Dehydration Adult, ED Hypo natremia, Magnesium Salts capsules or tablets immediate release Admission Data Admit Date/Time: 03/05/20 23:59 Attending Provider: Mere Wahl Admit Provider: Angélica Montoya Primary Care Provider: Margraet Pond. Other Providers: Angélica Montoya ; Jassi Velasquez Other Interventions: Discharge Summary Assessment (RN) Last Done: 03/07/20 11:35 DC Date/Time DO NOT enter until pt leaves facility: 03/07/20 12:45 Supervising Physician Co-Signing Physician Notes Resident Physician Supervision Note: I independently interviewed and examined the patient and verified the ott history and physical, reviewed labs and image studies, discussed the case with the resident Dr. Reynaga and agree with the findings and care plan. Resident Activity Tracking Resident Involvement: Resident Care Provided Care Provided: Adult [facility]
[2020-03-07] MEDS ORDERED: POTASSIUM CHLORIDE 10 MEQ in SODIUM CHLORIDE 0.9% 1000ML 1,000 ML IV SCH (11:00)
== END 2020-03-07 12:45 | disposition home or self-care (01) | DRG 641 ==
LOC: ED 19:33 → SUATTDRO 23:59 → 2S 23:59